=== PATIENT | female | born 1955 | race Caucasian/White ===

== ENCOUNTER → 2020-03-20 13:37 | Outpatient (BNVA) | payer MEDICARE, OTHER, SELFPAY | PROVIDERS: Family Provider Internal Medicine; PCP Internal Medicine; Visit Provider Nurse Practitioner Family | DX: S99.912A Unspecified injury of left ankle, initial encounter (principal); X58.XXXA Exposure to other specified factors, initial encounter | CPT/HCPCS: 73610 ==

== ENCOUNTER 2021-06-14 10:49 | Outpatient (CLI) | payer MEDICARE, OTHER, SELFPAY ==
--- NOTE | 2021-06-14 10:54 | MM_ITS ---
WS: [id number] BILATERAL DIGITAL DIAGNOSTIC MAMMOGRAM MAMMOGRAPHY WITH CAD CLINICAL INFORMATION: HX OF BREAST CA HISTORY: History of left lumpectomy COMPARISON: Outside examinations May 2020, May 2017, May 2018 and May 2019 TECHNIQUE: Bilateral CC, MLO, and ML views. FINDINGS: The breasts are composed of heterogeneous fibroglandular density, which can limit the detection of sm all underlying mass lesions. Prior postoperative changes left lumpectomy with parenchymal fibrosis si milar to previous. Dystrophic calcifications. Surgical clips about the lumpectomy site. Punctate and secretory calcifications. Lucent centered calcifications. Vascular calcification. No suspicious focal mass, asymmetry, calcifications, or architectural distortion. No evidence of samuel gnancy. MM/[place] [id number] IMPRESSION: BI-RADS: 2-Benign FOLLOW UP: 1 Year Follow-up Recommend return to annual diagnostic mammography.
== END 2021-06-14 10:50 | disposition home or self-care (01) ==
LOC: RADSHAW 10:52
PROVIDERS: PCP Internal Medicine; Visit Provider Internal Medicine
DX: Z85.3 Personal history of malignant neoplasm of breast (principal)
CPT/HCPCS: 77066

== ENCOUNTER 2022-07-03 10:36 | Outpatient (CLI) | payer MEDICARE, OTHER, SELFPAY ==
--- NOTE | 2022-07-03 10:43 | MM_ITS ---
WS: [id number] DIAGNOSTIC BILATERAL DIGITAL BREAST TOMOSYNTHESIS MAMMOGRAPHY WITH CAD HISTORY: HX OF BREAST CA COMPARISON: 06/14/2021, 05/26/2020 and 05/26/2019 TECHNIQUE: Bilateral craniocaudad, mediolateral oblique, and mediolateral views are submitted with to mosynthdane and SM. Computer aided detection utilized. Breast composition: There are scattered areas of fibroglandular density. Postsurgical lumpectomy grijalva ges in the upper outer quadrant of the LEFT breast. There is distortion of the soft tissues. Dystroph ic calcifications and surgical clips at the surgical bed. 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 Additional bilateral calcifications in each breast. MM/[place] [id number] IMPRESSION: BI-RADS: 2-Benign FOLLOW UP: 1 Year Follow-up
== END 2022-07-03 10:37 | disposition home or self-care (01) ==
PROVIDERS: PCP Internal Medicine; Visit Provider Internal Medicine
DX: Z85.3 Personal history of malignant neoplasm of breast (principal)
CPT/HCPCS: 77062

== ENCOUNTER 2023-07-10 12:18 | Outpatient (CLI) | payer MEDICARE, OTHER, SELFPAY ==
--- NOTE | 2023-07-10 12:32 | MM_ITS ---
WS: [id number] BILATERAL 3D TOMOSYNTHESIS DIGITAL DIAGNOSTIC MAMMOGRAPHY WITH CAD CLINICAL INFORMATION: ANNUAL - HX BR CA HISTORY: COMPARISON: 2021 TECHNIQUE: Bilateral CC, MLO, and ML views. FINDINGS: Scattered fibroglandular densities bilaterally. Punctate and lucent centered calcifications. Parenc hymal scarring upper outer LEFT breast at the lumpectomy site with surgical clips. Treatment related changes LEFT breast. Vascular calcification. No suspicious focal mass, asymmetry, calcifications, or architectural distortion. No evidence of samuel gnancy. IMPRESSION: MM/[place] [id number] BI-RADS: 2-Benign FOLLOW UP: 1 Year Follow-up Recommend return to annual diagnostic mammography.
== END 2023-07-10 12:19 | disposition home or self-care (01) ==
LOC: RAD 12:19
PROVIDERS: PCP Internal Medicine; Visit Provider Internal Medicine
DX: Z85.3 Personal history of malignant neoplasm of breast (principal)
CPT/HCPCS: 77062; G0279

== ENCOUNTER 2024-03-19 11:34 | Outpatient (CLI) | payer MEDICARE, OTHER, SELFPAY ==
--- NOTE | 2024-03-19 11:37 | USCV_ITS ---
Lucinda Huynh Age: 68 Gender: F : 1955 Exam Date: 03/19/2024 11:47 Ordering Phys: Timoteo Stuart DO Technologist: HILDA Exam Location: [facility] [place] Indication: BP: 128 / 68 HR: 110 Rhythm: Sinus Technical Quality: Adequate MEASUREMENTS (Male / Female) Normal Values 2D ECHO LV Diastolic Diameter PLAX 4.1 cm 4.2 - 5.9 / 3.9 - 5.3 cm LV Systolic Diameter PLAX 2.7 cm IVS Diastolic Thickness 1.2 cm 0.6 - 1.0 / 0.6 - 0.9 cm IVS Systolic Thickness 1.4 cm LVPW Diastolic Thickness 1.5 cm 0.6 - 1.0 / 0.6 - 0.9 cm LVPW Systolic Thickness 1.6 cm LVOT Diameter 2.0 cm LV Ejection Fraction 2D Teich 61.3 % LV Ejection Fraction MOD 2C 61.3 % LV Ejection Fraction 2C AL 59.6 % LA Diameter 3.2 cm RA Systolic Volume 4C AL 15.8 ml RA Systolic Volume 4C MOD 12.9 ml LA Sys Volume AL 32.3 cm cubed LA Sys Volume Index AL 15.8 cm cubed/m squared Aorta at Sinotubular Diameter 2.1 cm IVC Diameter 2.1 cm M-MODE LA Ao Ratio MM 1.4 MV E Point Septal Separation 1.6 cm AV Cusp Separation MM 1.4 cm DOPPLER LVOT Peak Velocity 100.0 cm/s AV Area Cont Eq vti 3.4 cm squared AV Area Cont Eq pk 3.0 cm squared TV Peak Velocity 103.0 cm/s TR Peak Velocity 103.0 cm/s TR Peak Gradient 4.2 mmHg TR Mean Velocity 72.0 cm/s TR Mean Gradient 2.3 mmHg TR Velocity Time Integral 28.9 cm TV Peak E Velocity 60.0 cm/s RV Ejection Time 0.3 s FINDINGS Left Ventricle Normal left ventricular size and systolic function, EF 60%. No regional wall motion abnormalities. Grade I/IV diastolic dysfunction (abnormal relaxation filling pattern), normal to mildly elevated filling pressures. Right Ventricle The right ventricle is normal in size and function. Right Atrium The right atrium is normal in size. Left Atrium The left atrium is normal in size. Mitral Valve Moderate mitral annular calcification. Trace mitral valve regurgitation. Aortic Valve Thickened aortic valve. Tricuspid Valve No gross abnormalities noted Pulmonic Valve No gross abnormalities noted Pericardium Normal pericardium without effusion. Aorta Normal ascending aorta dimension. IVC Normal inferior vena cava. CONCLUSIONS Normal left ventricular size and systolic function, EF 60%. No regional wall motion abnormalities. Grade I/IV diastolic dysfunction (abnormal relaxation filling pattern), normal to mildly elevated filling pressures. Moderate mitral annular calcification. Trace mitral valve regurgitation. Thickened aortic valve. There is no pericardial effusion. There are no intracardiac masses. No similar previous studies are available for comparison Dr Jin Zarate MD [facility] (Electronically Signed) Final Date: 21 Mar 2024 12:51 S
--- NOTE | 2024-03-19 13:13 | ECG_ITS ---
[facility] Test Date: 2024-03-19 Pat Name: Lucinda Huynh Department: Room: Gender: Female [employer] Master: : 1955 Requested By: Timoteo Villanueva Order Number: [id number] Lissette MD: Interpretive Statements Lung unchanged pre/post procedure; Intraprocedure shortess of breath [id number]
[2024-03-19 14:04] VITALS: BP 149/53; PULSE 81
== END 2024-03-19 11:35 | disposition home or self-care (01) ==
LOC: RAD 11:34 → CDL 13:03
PROVIDERS: PCP Internal Medicine; Visit Provider Internal Medicine
DX: R01.1 Cardiac murmur, unspecified (principal); R07.9 Chest pain, unspecified; I35.2 Nonrheumatic aortic (valve) stenosis with insufficiency; I50.30 Unspecified diastolic (congestive) heart failure
CPT/HCPCS: 93017; 93306

== ENCOUNTER → 2024-04-16 13:32 | Outpatient (BNVA) | payer MEDICARE, OTHER, SELFPAY | PROVIDERS: PCP Internal Medicine; Referring Provider Internal Medicine; Visit Provider Internal Medicine Cardiovascular Disease | DX: R07.89 Other chest pain (principal); I35.0 Nonrheumatic aortic (valve) stenosis; I10 Essential (primary) hypertension; E78.5 Hyperlipidemia, unspecified; E11.9 Type 2 diabetes mellitus without complications; I49.8 Other specified cardiac arrhythmias; Z87.891 Personal history of nicotine dependence; Z79.84 Long term (current) use of oral hypoglycemic drugs | CPT/HCPCS: 99204 ==

== ENCOUNTER 2024-05-05 11:08 | Outpatient (CLI) | payer MEDICARE, OTHER, SELFPAY ==
--- NOTE | 2024-05-05 11:15 | USCV_ITS ---
Lucinda Huynh Age: 69 Gender: F : 1955 Exam Date: 05/05/2024 11:20 Ordering Phys: Jin Zarate MD ([email or web address]) Technologist: Exam Location: [facility] [place] Indication: as BP: 100 / 60 HR: 48 Rhythm: Sinus Technical Quality: Adequate MEASUREMENTS (Male / Female) Normal Values 2D ECHO LVOT Diameter 2.0 cm LV Ejection Fraction MOD 2C 54.5 % LV Ejection Fraction 2C AL 52.5 % LA Diameter 4.6 cm Aorta at Sinotubular Diameter 2.3 cm M-MODE LA Ao Ratio MM 1.1 AV Cusp Separation MM 0.7 cm DOPPLER AV Peak Velocity 329.7 cm/s LVOT Peak Velocity 99.0 cm/s AV Area Cont Eq vti 1.1 cm squared AV Area Cont Eq pk 0.9 cm squared FINDINGS Left Ventricle Normal LV size and ejection fraction of 55%. Mild concentric left trickle hypertrophy. No gross wall motion abnormalities noted. Right Ventricle The right ventricle is normal in size and function. Right Atrium The right atrium is normal in size. Left Atrium Mildly increased left atrial size. Mitral Valve Minimally thickened mitral valve Aortic Valve Moderate aortic valve stenosis with a peak velocity of 2.76 m/s, peak gradient of 32 and a mean gradient of 14 mmHg. Calculated valve area of 1.13 cm squared. Tricuspid Valve No gross abnormalities noted Pulmonic Valve Not visualized well Pericardium Normal pericardium without effusion. Aorta Normal ascending aorta dimension. IVC Inferior vena cava not visualized. CONCLUSIONS Normal LV size and ejection fraction of 55%. Mild concentric left trickle hypertrophy. No gross wall motion abnormalities noted. Moderate aortic valve stenosis with a peak velocity of 2.76 m/s, peak gradient of 32 and a mean gradient of 14 mmHg. Calculated valve area of 1.13 cm squared. Minimally thickened mitral valve. There is no pericardial effusion. There are no intracardiac masses. Comparison with the previous study is difficult because of the difference in the technical quality. Dr Jin Zarate MD [facility] (Electronically Signed) Final Date: 13 May 2024 00:01 S
== END 2024-05-05 11:09 | disposition home or self-care (01) ==
LOC: RAD 11:08
PROVIDERS: PCP Internal Medicine; Visit Provider Internal Medicine Cardiovascular Disease
DX: I35.0 Nonrheumatic aortic (valve) stenosis (principal); I34.81 Nonrheumatic mitral (valve) annulus calcification
CPT/HCPCS: 93308; 93325

== ENCOUNTER 2024-07-15 08:51 | Outpatient (CLI) | payer MEDICARE, OTHER, SELFPAY ==
--- NOTE | 2024-07-15 08:56 | MM_ITS ---
WS: [id number] DIAGNOSTIC BILATERAL DIGITAL BREAST TOMOSYNTHESIS MAMMOGRAPHY WITH CAD HISTORY: HX OF BREAST CANCER COMPARISON: 07/03/2022, 07/10/2023, 05/26/2019 TECHNIQUE: Bilateral craniocaudad, mediolateral oblique, and mediolateral views are submitted with to mosynthesis and SM. Computer aided detection utilized. Breast composition: The breasts are heterogeneously dense, which may obscure small masses. Parenchymal scarring and fibrosis with dystrophic calcifications in the upper outer quadrant of the L EFT breast at the lumpectomy site. There are numerous benign calcifications within each breast. No ma ss. No suspicious grouping of calcifications. MM/[place] [id number] IMPRESSION: BI-RADS: 2 - Benign FOLLOW UP: 1 Year Follow-up
== END 2024-07-15 08:52 | disposition home or self-care (01) ==
LOC: RAD 08:51
PROVIDERS: PCP Internal Medicine; Visit Provider Internal Medicine
DX: Z85.3 Personal history of malignant neoplasm of breast (principal); R92.333 Mammographic heterogeneous density, bilateral breasts; N60.32 Fibrosclerosis of left breast; R92.1 Mammographic calcification found on diagnostic imaging of breast
CPT/HCPCS: 77062; G0279

== ENCOUNTER → 2024-07-21 09:42 | Outpatient (BNVA) | payer MEDICARE, OTHER, SELFPAY | PROVIDERS: PCP Internal Medicine; Visit Provider Internal Medicine Cardiovascular Disease | DX: I35.0 Nonrheumatic aortic (valve) stenosis (principal); I10 Essential (primary) hypertension; E78.5 Hyperlipidemia, unspecified; I49.8 Other specified cardiac arrhythmias; E11.9 Type 2 diabetes mellitus without complications; R00.1 Bradycardia, unspecified | CPT/HCPCS: 99214 ==

== ENCOUNTER → 2025-01-18 08:51 | Outpatient (BNVA) | payer MEDICARE, OTHER, SELFPAY | PROVIDERS: PCP Internal Medicine; Visit Provider Nurse Practitioner Family | DX: I35.0 Nonrheumatic aortic (valve) stenosis (principal); I10 Essential (primary) hypertension; E78.5 Hyperlipidemia, unspecified; I49.8 Other specified cardiac arrhythmias; E11.9 Type 2 diabetes mellitus without complications; R00.1 Bradycardia, unspecified; Z87.891 Personal history of nicotine dependence; Z79.84 Long term (current) use of oral hypoglycemic drugs | CPT/HCPCS: 99214 ==

== ENCOUNTER 2025-05-10 11:15 | Outpatient (CLI) | payer MEDICARE, OTHER, SELFPAY ==
--- NOTE | 2025-05-10 11:15 | USCV_ITS ---
Lucinda Huynh Age: 70 Gender: F : 1955 Exam Date: 05/10/2025 11:28 Ordering Phys: Licha Benz NP Technologist: CAYDEN [place] [facility] [place]ication: Aortic Stenosis BP: 126 / 70 HR: 56 Rhythm: Sinus Technical Quality: Adequate MEASUREMENTS (Male / Female) Normal Values 2D ECHO LV Diastolic Diameter PLAX 4.3 cm 4.2 - 5.9 / 3.9 - 5.3 cm IVS Diastolic Thickness 1.1 cm 0.6 - 1.0 / 0.6 - 0.9 cm IVS Systolic Thickness 1.7 cm LVPW Diastolic Thickness 1.1 cm 0.6 - 1.0 / 0.6 - 0.9 cm LVPW Systolic Thickness 1.7 cm LVOT Diameter 2.0 cm LV Ejection Fraction 2D Teich 61.9 % LV Ejection Fraction MOD 4C 72.1 % LV Ejection Fraction MOD 2C 64.8 % LV Ejection Fraction 2C AL 65.5 % LA Diameter 2.6 cm RA Systolic Volume 4C AL 40.6 ml RA Systolic Volume 4C MOD 41.2 ml LA Sys Volume AL 56.9 cm cubed LA Sys Volume Index AL 29.3 cm cubed/m squared Aorta at Sinotubular Diameter 2.8 cm IVC Diameter 2.4 cm M-MODE LA Ao Ratio MM 1.3 AV Cusp Separation MM 1.1 cm DOPPLER AV Peak Velocity 251.5 cm/s LVOT Peak Velocity 91.0 cm/s AV Area Cont Eq vti 1.1 cm squared AV Area Cont Eq pk 1.1 cm squared MV Peak Velocity 141.0 cm/s MV Area PHT 4.0 cm squared Mitral E to A Ratio 0.7 TR Peak Velocity 117.0 cm/s TR Peak Gradient 5.5 mmHg TV Peak E Velocity 72.0 cm/s FINDINGS Left Ventricle Normal left ventricular size and systolic function, EF 65%.mild left ventricular hypertrophy. No regional wall motion abnormalities. Grade I/IV diastolic dysfunction (abnormal relaxation filling pattern), normal to mildly elevated filling pressures. Right Ventricle The right ventricle is normal in size and function. Right Atrium The right atrium is normal in size. Left Atrium Mildly increased left atrial size. Mitral Valve Mild mitral annular calcification. Aortic Valve Moderate aortic valve stenosis, mean gradient 11.9 mmHg, KATIE 1.1 cm squared. Peak velocity of 2.6 m/s with a peak gradient of 27 and a mean gradient of 12 mmHg Moderate aortic valve calcification. Trace aortic valve regurgitation. Tricuspid Valve No gross abnormalities noted Pulmonic Valve No gross abnormalities noted Pericardium No pericardial effusion. Aorta Normal aortic annulus size. IVC Normal inferior vena cava. CONCLUSIONS Normal left ventricular size and systolic function, EF 65%.mild left ventricular hypertrophy. No regional wall motion abnormalities. Grade I/IV diastolic dysfunction (abnormal relaxation filling pattern), normal to mildly elevated filling pressures. Moderate aortic valve stenosis, mean gradient 11.9 mmHg, KATIE 1.1 cm squared. Peak velocity of 2.6 m/s with a peak gradient of 27 and a mean gradient of 12 mmHg Moderate aortic valve calcification. Trace aortic valve regurgitation. Mild mitral annular calcification. Mildly increased left atrial size. There is no pericardial effusion. There are no intracardiac masses. Compared to the study from 05/05/2024, there may not be a significant change Dr Jin Zarate MD [facility] (Electronically Signed) Final Date: 11 May 2025 07:38 S
== END 2025-05-10 11:16 | disposition home or self-care (01) ==
LOC: RAD 11:16
PROVIDERS: PCP Family Medicine; Visit Provider Nurse Practitioner Family
DX: I35.0 Nonrheumatic aortic (valve) stenosis (principal); I51.7 Cardiomegaly; I51.89 Other ill-defined heart diseases; I34.81 Nonrheumatic mitral (valve) annulus calcification
CPT/HCPCS: 93306

== ENCOUNTER 2025-05-19 12:21 | Emergency (ER) | payer MEDICARE, OTHER, SELFPAY ==
--- NOTE | 2025-05-19 12:22 | XR_ITS ---
WS: [id number] XR chest 1V portable [id number] REASON FOR EXAM: cp FINDINGS: Chest is unchanged compared to 03/04/2024. Moderate tortuosity of the thoracic aorta with calcification of the aortic arch. Heart size is at the upper limits of normal. Calcified granulomatous disease bilaterally. No acute pulmonary parenchymal or pleural abnormality. Mild levoscoliosis and moderate degenerative spondylosis in the thoracic spine. Chronic posttraumatic changes of the right acromioclavicular joint. XR/XR chest 1V portable [id number] IMPRESSION: Stable chest with no acute abnormality.
--- NOTE | 2025-05-19 12:22 | ECG_ITS ---
[facility] Test Date: 2025-05-19 Pat Name: Lucinda Huynh Department: Room: Gender: Female [employer] Designer: : 1955 Requested By: Kristian Rodriguez Order Number: [id number] Lissette MD: Jin Zarate M.D. Measurements Intervals [place] Rate: 59 P: 49 [place]: 146 QRS: 7 QRSD: 90 T: 6 QT: 417 QTc: 414 Interpretive Statements SINUS BRADYCARDIA LOW QRS VOLTAGE IN PRECORDIAL LEADS [QRS DEFLECTION < 1.0 mV IN CHEST LEADS] Poor R wave progression Compared to ECG 01/21/2019 15:12:08 Sinus rhythm no longer present Electronically Signed On 05-19-2025 16:41:35 CDT by Jin Zarate M.D. [email or web address] [id number]
[2025-05-19 12:28] VITALS: BP 210/80; PULSE 58; TEMP 36.5; O2SAT 96; BMI 34.7
--- OUTSIDE RECORDS SUMMARY | 2025-05-19 12:28 | XMS_ITS | Data Portability ---
Author Organization HECTOR Aaron [facility] [address], [facility] Address [address] [address] Care Team Providers Care Road Marker Name Role Phone TIMOTEO STUART Primary Care Provider Unavailabl e Assessment No assessment recorded. Plan of Treatment Reminders Order Date Submit Date Provider Last Modified By Organization Details Last Modified Time Details Appointments LAB 2024 08:00A M LAB Not available Not available Not available OFFICE VISIT 15 2024 11:00A M Bola Carpenter MD Not available Not available Not available Lab hemoglobi n A1C/hemog lobin total, QN, blood 2024 025 [facility], [address], [address], 11/25/2024 09:29:45 BMP, serum or plasma 2024 025 [facility], [address], [address], 11/25/2024 17:52:05 HbA1c (hemoglob in A1c), blood 2023 024 [facility] ([facility]), [address] [place] [address], [address], 05/27/2024 10:18:16 TSH, serum or plasma 2023 024 [facility] ([facility]), [address] [place], [address], 05/27/2024 10:40:11 lipid panel, blood 2023 024 [facility], [address], [address], [place], [address], 05/27/2024 10:40:21 CMP, serum or plasma 2023 024 [facility], [address], [address], [place], [address], 05/27/2024 10:39:07 CBC 2023 024 [facility], [address] [facility], [place], [address], 05/27/2024 10:05:44 Referral None recorded. Procedures None recorded. Surgeries None recorded. Imaging None recorded. Medication Orders ondansetr on 4 mg disintegr ating tablet 2023 024 [email or web address] [id number] [facility]/Pharmacy #[id number], [address], [facility], [place], [address], 12/02/2024 10:19:12 omeprazol e 20 mg capsule,d elayed release 2023 024 [facility]/Pharmacy #[id number], [address], [address], [place], [address], 06/03/2024 10:12:14 pravastat in 40 mg tablet 2023 024 [id number], [address], [address], [place], [address], 06/03/2024 10:12:14 Patient TargetsNo targets recorded. Patient Instructions Encounter Date Encounter Id Patient Instructions Last Modified By Organization Details Last Modified Time 06/03/2024 [id number] lost son unexpectedly; mostly handling okay, but he was her best friend labs reviewed and excellent regularly gets nauseous; random times; lots of heartburn despite taking pepsid; will perscirbe omeprazole following with cardiology [email or web address] Not available 06/03/2024 10:09:58 Reason for Referral None Reported. Results Created Date Observation Date Name Description Value Unit Range Abnormal Flag Note LastModifiedBy Organization Detail LastModifiedTime 05/27/2005/27/2024 CBC WBC 6.8 x10 4.0-10 .5 Not Available [facility] [address] [facility], [place], [address], 05/27/2024 10:05:44 05/27/2005/27/2024 CBC RBC 4.60 x10 3.50-5 .50 Not Available [facility] [address] [facility], [place], [address], 05/27/2024 10:05:44 05/27/20 24 05/27/2024 CBC HGB 15.0 g/dL 12.0-1 6.0 Not Available [facility] [address] [facility], [place], [address], 05/27/2024 10:05:44 05/27/20 24 05/27/2024 CBC HCT 43.6 % 37.0-4 7.0 Not Available [facility] [address] [facility], [place], [address], 05/27/2024 10:05:44 05/27/2005/27/2024 CBC MCV 94.7 fL 80.0-9 9.9 Not Available [facility] [address] [facility], [place], [address], 05/27/2024 10:05:44 05/27/2005/27/2024 CBC MCH 32.6 pg 27.0-3 2.0 high Not Available [facility] [address] [facility], [place], [address], 05/27/2024 10:05:44 05/27/2005/27/2024 CBC MCHC 34.4 g/dL 32.0-3 6.0 Not Available [facility] [address] [facility], [place], [address], 05/27/2024 10:05:44 05/27/2005/27/2024 CBC RDW 13.6 % 11.5-1 4.5 Not Available [facility] [address] [facility], [place], [address], 05/27/2024 10:05:44 05/27/2005/27/2024 CBC plt 259.2 x10 140.0- 451.0 Not Available [facility] [address] [facility], [place], [address], 05/27/2024 10:05:44 05/27/20 24 05/27/2024 CBC lymphocytes % 27.5 % 20.0-5 0.0 Not Available [facility] [address] [facility] [place], [address], 05/27/2024 10:05:44 05/27/2005/27/2024 CBC granulcytes % 63.1 % 30.0-7 0.0 Not Available [facility] [address] [facility], [place], [address], 05/27/2024 10:05:44 05/27/2005/27/2024 CBC monocytes % 7.7 % 2.0-16 .0 Not Available [facility] [address] [facility], [place], [address], 05/27/2024 10:05:44 05/27/20 24 05/27/2024 CBC granulcytes# 4.3 x10 Not [facility] [address] [facility], [place], [address], 05/27/2024 10:05:44 05/27/20 24 05/27/2024 CBC lymphocytes # 1.9 x10 Not Available [facility] [address] [facility], [place], [address], 05/27/2024 10:05:44 05/27/20 24 05/27/2024 CBC monocytes # 0.5 x10 Not Avai lable [facility] [address] [address], [place], [address], 05/27/2024 10:05:44 05/27/20 24 05/27/2024 CMP (FEMA LE) glucose 158.0 mg/dL 60.0-9 9.0 high Not Available [facility] [address] [facility], [place], [address], 05/27/2024 10:39:07 05/27/20 24 05/27/2024 CMP (FEMA LE) BUN (blood urea nitrogen) 14.0 mg/dL 10.0-2 6.0 Not Available [facility] [address] [address], [place], [address], 05/27/2024 10:39:07 05/27/20 24 05/27/2024 CMP (FEMA LE) creatinine (serum) 1.0 mg/dL 0.4-1. 5 Not Available [facility] [address] [address], [place], [address], 05/27/2024 10:39:07 05/27/20 24 05/27/2024 CMP (FEMA LE) BUN/creatini ne ratio 13.46 ratio Not Available [facility] [address] [facility] [address] [address], [place], [address], 05/27/2024 10:39:07 05/27/20 24 05/27/2024 CMP (FEMA LE) eGFR calculated 55.5 Not Available [facility] [address] [facility], [place], [address], 05/27/2024 10:39:07 05/27/20 24 05/27/2024 CMP (FEMA LE) total protein 7.8 g/dL 6.0-8. 5 Not Available [facility] [address] [facility], [place], [address], 05/27/2024 10:39:07 05/27/20 24 05/27/2024 CMP (FEMA LE) total bilirubin 0.5 mg/dL 0.2-1. 3 Not Available [facility] [address] [facility], [place], [address], 05/27/2024 10:39:07 05/27/20 24 05/27/2024 CMP (FEMA LE) albumin 4.5 g/dL 3.5-5. 5 Not Available [facility] [address] [facility], [place], [address], 05/27/2024 10:39:07 05/27/20 24 05/27/2024 CMP (FEMA LE) globulin 3.3 calc Not Available [facility] [address] [facility], [place], [address], 05/27/2024 10:39:07 05/27/20 24 05/27/2024 CMP (FEMA LE) AST (SGOT) 24.0 U/L 0.0-46 .0 Not Available [facility] [address] [facility], [place], [address], 05/27/2024 10:39:07 05/27/20 24 05/27/2024 CMP (FEMA LE) altv (SGPT) 11.0 U/L 13.0-6 9.0 abnormal Not Available [facility] [address] [facility], [place], [address], 05/27/2024 10:39:07 05/27/20 24 05/27/2024 CMP (FEMA LE) A/G ratio 1.4 ratio Not Available [facility] [address] [facility], [place], [address], 05/27/2024 10:39:07 05/27/20 24 05/27/2024 CMP (FEMA LE) ALP phos 67.0 U/L 30.0-1 40.0 normal Not Available [facility] [address] [facility], [place], [address], 05/27/2024 10:39:07 05/27/20 24 05/27/2024 CMP (FEMA LE) calcium 9.7 mg/dL 8.4-10 .5 Not Available [facility] [address] [facility], [place], [address], 05/27/2024 10:39:07 05/27/20 24 05/27/2024 CMP (FEMA LE) sodium 140.0 mmol/ L 136.0- 145.0 Not Available [facility] [address] [facility], [place], [address], 05/27/2024 10:39:07 05/27/20 24 05/27/2024 CMP (FEMA LE) potassium 4.4 mmol/ L 3.5-5. 1 Not Available [facility] [address] [facility], [place], [address], 05/27/2024 10:39:07 05/27/20 24 05/27/2024 CMP (FEMA LE) chloride 104.0 mmol/ L 98.0-1 10.0 normal Not Available [facility] [address] [facility], [place], [address], 05/27/2024 10:39:07 05/27/20 24 05/27/2024 CMP (FEMA LE) C02 28.0 mmol/ L 22.0-3 1.0 Not Available [facility] [address] [facility], [place], [address], 05/27/2024 10:39:07 05/27/20 24 05/27/2024 CMP (FEMA LE) anion gap 8.0 calc Not Available [facility] [address] [facility], [place], [address], 05/27/2024 10:39:07 05/27/20 24 05/27/2024 CMP (FEMA LE) osmolality 292.6 calc Not Available [facility] [address] [facility], [place], [address], 05/27/2024 10:39:07 05/27/20 24 05/27/2024 LIPID PROFI LE (FEMA LE) cholesterol 176.0 mg/dL 0.0-20 0.0 Not Available [facility] [address] [facility], [place], [address], 05/27/2024 10:40:20 05/27/20 24 05/27/2024 LIPID PROFI LE (FEMA LE) trig 210.0 mg/dL 0.0-15 0.0 high Not Available [facility] [address] [facility], [place], [address], 05/27/2024 10:40:20 05/27/20 24 05/27/2024 LIPID PROFI LE (FEMA LE) HDL - direct 44.0 mg/dL >40.0 Not Available [facility] [address] [facility], [place], [address], 05/27/2024 10:40:20 05/27/20 24 05/27/2024 LIPID PROFI LE (FEMA LE) VLDL - direct 42.0 mg/dL Not Available [facility] [address] [facility] 1, [place], [address], 05/27/2024 10:40:20 05/27/20 24 05/27/2024 LIPID PROFI LE (FEMA LE) LDL - direct 90.0 mg/dL 0.0-13 0.0 Not Available [facility] [address] [facility] 1, [place], [address], 05/27/2024 10:40:20 05/27/20 24 05/27/2024 TSH, serum or plasm a TSH 0.96 uIU/m L 0.49-3 .82 normal Not Available [facility] ([facility]) [address] [place] [address], [address], 05/27/2024 09:40:29 05/27/20 24 05/27/2024 HbA1c (hemo globi n A1c), blood HbA1c 6.6 Not Available [facility] ([facility]) [address] [place] [address], [address], 05/27/2024 09:40:22 11/18/1911/25/2024 HBA1C hemaglobin A1C 6.6 4.2-6. 5 high Not Available [facility] [address] [address], [place], [address], 11/25/2024 09:29:45 11/18/1911/25/2024 BMP (FEMA LE) glucose 156.0 mg/dL 60.0-9 9.0 high Not Available [facility] [address] [facility] 1, [place], [address], 11/25/2024 17:52:05 11/18/1911/25/2024 BMP (FEMA LE) BUN (blood urea nitrogen) 12.0 mg/dL 10.0-2 6.0 Not Available [facility] [address] [facility], [place], [address], 11/25/2024 17:52:05 11/18/19 25 11/25/2024 BMP (FEMA LE) creatinine (serum) 1.0 mg/dL 0.4-1. 5 Not Available [facility] [address] [facility] 1, [place], [address], 11/25/2024 17:52:05 11/18/1911/25/2024 BMP (FEMA LE) BUN/creatini ne ratio 12.00 ratio Not Available [facility] [address] [facility] 1, [place], [address], 11/25/2024 17:52:05 11/18/19 25 11/25/2024 BMP (FEMA LE) calcium 9.5 mg/dL 8.4-10 .5 Not Available [facility] [address] [facility] 1, [place], [address], 11/25/2024 17:52:05 11/18/1911/25/2024 BMP (FEMA LE) sodium 141.0 mmol/ L 136.0- 145.0 Not Available [facility] [address] [facility] 1, [place], [address], 11/25/2024 17:52:05 11/18/1911/25/2024 BMP (FEMA LE) potassium 4.3 mmol/ L 3.5-5. 1 Not Available [facility] [address] [facility] 1, [place], [address], 11/25/2024 17:52:05 11/18/1911/25/2024 BMP (FEMA LE) chloride 107.0 mmol/ L 98.0-1 10.0 normal Not Available [facility] [address], [place], [address], 11/25/2024 17:52:05 11/18/19 25 11/25/2024 BMP (FEMA LE) C02 31.0 mmol/ L 22.0-3 1.0 Not Available [facility] [address], [place], [address], 11/25/2024 17:52:05 11/18/19 25 11/25/2024 BMP (FEMA LE) anion gap 3.0 calc Not Available [facility] [address], [place], [address], 11/25/2024 17:52:05 04/06/20 25 04/06/2025 COLOG UARD cologuard result reportable NEGATI VE negati ve normal The Colog uard Plus (TM) test was perfo rmed on this speci men. NEGAT CARRIE TEST RESUL T. A negat carrie (norm al) Colog uard Plus resul t means the patie nt has a less- than- avera ge chanc e of havin g color ectal cance r (CRC) or advan steffi preca ncer (poly ps or lesio ns that could becom e cance r). Negat carrie is the terrie l value (refe rence range ) for this assay . Guide lines recom mend scree tha again 3 years after a negat carrie Colog uard Plus resul t. Jackson nued scree tha incre ases the chanc e of findi ng CRC early or preve nting it entir wil. A clini paris valid ation study showe d the Colog uard Plus test is effec tive at rulin g out CRC. Out of every 10,00 0 patie nts testi ng negat carrie, appro ximat wil 2 will be false ly reass ured that they do not have CRC, and out of every 100 patie nts testi ng negat carrie, appro ximat wil 7 patie nts will be false ly reass ured they do not have advan steffi preca ncer. TEST DESCR IPTIO N: The Colog uard Plus test is a multi -targ et stool DNA (mt-s DNA) test that roney zes DNA and hemog lobin bioma rkers in stool . It uses a propr ietar y algor ithm to quali tativ wil detec t CRC and advan steffi preca ncer. It is FDA-a pprov ed and indic ated for use in adult s 45 years or older at [facility] risk for CRC. A posit carrie (abno rmal) resul t shoul d be follo wed by a colon oscop y. Patie nts with a negat carrie (norm al) resul t shoul d scree n again in 3 years . False posit carrie and false negat carrie resul ts may occur . The USPST F recom mends the Colog uard test as a CRC scree tha optio n. Their model ing estim ates that scree tha with the test every 3 years from ages 45-85 could preve nt up to 73% of CRC and avoid up to 85% of CRC s. A 18,91 1-pat ient clini paris trial found the Colog uard Plus test effec tivel y detec ts CRC and preca ncer. The study found the test was 95% sensi tive for CRC, 43% sensi tive for advan steffi preca ncer, and had a 91% speci ficit y ([facility] morenita aCntu ure. Exact Scien colten Corpo ratio n. [place], [place] Visit www.[facility] [employer] /abou t/acc uracy -sens itivi ty-sp [facility] for more test infor matmerary n, refer emily de la garza ngs, and preca ution s. Not Available [facility] (Cologuard Orders Only) [address], [place], [address], 04/14/2025 06:00:48 07/15/20 24 07/15/2024 MAMMO , scree tha, digit al, bilat eral No observ ation record ed. [email or web address] [facility] [address] [place], [address], 07/16/2024 15:03:47 Result Notes None recorded. Problems Name Problem SNOMED Code Status Onset Date Resolution Date Notes Provider Name and Address Organization Details Recorded Time Disorder due to type 2 diabetes mellitus 771626647 Active 2022 DIABETES MELLITUS WITH COMPLICAT ION; Recorded 3 8:20AM by Estefani Curry RN, Office Visit; Promoted; acuity set as *; Not Available [facility] 3 03:11:08 Benign essential hypertens ion 3493173 Active 2022 Hypertens ion; 3 8:20AM by Estefani Curry RN, Office Visit; Promoted; acuity set as *; Not Available [facility] 3 03:11:08 Hyperlipi demia 04558935 Active 2022 Hyperlipi demia; 3 8:20AM by Estefani Curry RN, Office Visit; Promoted; acuity set as *; Not Available [facility] 3 03:11:08 Type 2 diabetes mellitus without complicat ion 559570145 Active 2022 Non-Insul in Dependent Diabetes Mellitus; 3 8:20AM by Estefani Curry RN, Office Visit; Promoted; acuity set as *; Not Available [facility] 3 03:11:08 Anxiety 71145365 Active 2023 ESTEFANI flannery [facility] 4 10:46:43 Morbid obesity 590284870 Active 2023 ESTEFANI flannery [facility] 4 10:46:51 Essential hypertens ion 58295152 Active 2022 Timoteo Stuart [address], [address] , [facility] 3 10:40:29 Hyperglyc emia due to type 2 diabetes mellitus 54428135954 9109 Active 2022 Timoteo StuartDO [address] [place], [address] , [facility], [place] 3 10:40:31 Echocardi ogram abnormal 613010086 Active 2023 ESTEFANI flannery [facility], [place] 4 13:20:23 Persisten t insomnia 278386419 Active 2022 ESTEFANI flannery [facility] [place] 3 15:41:01 Problem Notes None recorded. Procedures Surgical History Date Name Laterality Status Provider Name and Address Organization Details Recorded Time colonoscopy completed SVETA MUNGUIA [employer]ATHER[employer]ATION DIRECTOR [address] [place], [address], [facility], [place] 04/14/2025 15:00:55 Tubal Ligation completed [facility] 12/02/2024 10:21:30 lumpectomy of left breast completed Laurel [facility]rien [facility] 12/02/2024 10:21:44 Imaging Results None recorded. Procedure Notes None recorded. Medical Equipment None Reported. Allergies No known drug allergies Medications Name Sig Start Date Stop Date Status Note LastModified by Organization Details LastModified Time Colace 100 mg capsule two times daily 06/03 completed 0; Recorded 11/19/19 23 8:20AM by Alejandra Curry RN, Office Visit; Not Available Not Available Not Available pravastat in 40 mg tablet TAKE 1 TABLET DAILY 2024 active Not Available Not Available Not Avai lable glipizide ER 10 mg tablet, extended release 24 hr TAKE 1 TABLET EVERY MORNING 03/04 completed Not Available Not Available Not Available prednison e 20 mg tablet TAKE 2 TABS BY MOUTH X 4 DAYS, THEN 1 TAB X 2 DAYS, THEN 1/2 TAB X 2 DAYS 02/20 completed Not Available Not Available Not Available amlodipin e 5 mg tablet TAKE 1 TABLET BY MOUTH EVERY DAY 12/02 completed Not Available Not Available Not Available tramadol 50 mg tablet TAKE 1 TABLET BY MOUTH EVERY 6 HOURS active Not Available Not Available No t Available ondansetr on 8 mg disintegr ating tablet PLACE 1 TABLET ON TOP OF TONGUE AND ALLOW TO DISSOLVE 3 TIMES A DAY NEEDED 06/03 completed Not Available Not Available Not Available citalopra m 20 mg tablet TAKE 1 TABLET DAILY 2024 active Not Available Not Available Not Avai lable trazodone 100 mg tablet TAKE 1 TABLET AT BEDTIME 2024 active Not Available Not Available Not Avai lable amlodipin e 10 mg tablet TAKE 1 TABLET DAILY 2024 active Not Available Not Available Not Avai lable omeprazol e 20 mg capsule,d elayed release Take 1 capsule every day by oral route. 2024 active Not Available Not Available Not Avai lable albuterol sulfate HFA 90 mcg/actua tion aerosol inhaler FOUR TIMES DAILY NEEDED. active Not Available Not Available No t Available ondansetr on 4 mg disintegr ating tablet PLACE 1 TABLET ON TOP OF TONGUE AND ALLOW TO DISSOLVE 3 TIMES A DAY NEEDED 12/02 completed Not Available Not Available Not Available losartan 100 mg tablet TAKE 1 TABLET BY MOUTH EVERY EVENING active Not Available Not Available No t Available metformin ER 500 mg tablet,ex tended release 24 hr TAKE 2 TABLETS TWICE A DAY 2024 active Not Available Not Available Not Avai lable doxycycli ne hyclate 100 mg tablet TAKE 1 TABLET BY MOUTH TWICE A DAY 02/20 completed Not Available Not Available Not Available Ventolin 90 mcg/actua tion aerosol inhaler four times daily, as needed 06/03 completed Recorded 04/16/20 22 9:07AM by Alejandra Curry RN, Office Visit; Refill Quantity : 0; Not Available Not Available Not Available metoprolo l tartrate 25 mg tablet TAKE 1 TABLET TWICE A DAY BY ORAL ROUTE FOR 90 DAYS. active she takes half a tablet daily Not Available Not Available Not Available calcium daily 07/31 /2024 completed 0; Recorded 11/19/19 23 8:20AM by Alejandra Curry RN, Office Visit; Not Available Not Available Not Available Vitamin D daily 06/03 completed 0; Recorded 11/19/19 23 8:20AM by Alejandra Curry RN, Office Visit; Not Available Not Available Not Available pravastat in daily 12/04 completed for choleste rol VO CS/smf; 18096; Recorded 11/05/19 23 8:02AM by Alejandra Curry RN (Authori zed through Timoteo Stuart DO), Refill Request; Mail Order Quantity : 90 Tablet; Refill Quantity : 30; Tablet; Not Available Not Available Not Available glipizide every morning 12/04 completed cs/smf *do not fill until requeste d*; 04858; Recorded 11/01/20 22 8:58AM by Isabel Da Silva (Authori nona through Osmel Rahman DO), Refill Request; Mail Order Quantity : 100 Tablet; Refill Quantity : 90; Tablet; Not Available Not Available Not Available metformin two times daily 12/04 completed 26276; Recorded 04/16/20 22 9:07AM by Alejandra Curry RN (Authori nona through Timoteo Stuart DO), Office Visit; Mail Order Quantity : 400 Tablet; Refill Quantity : 0; Not Available Not Available Not Available Trazodone at bedtime 12/04 completed cs/smf; 18307; Recorded 04/16/20 22 9:07AM by Alejandra Curry RN (Authori zed through Timoteo Stuart DO), Office Visit; Mail Order Quantity : 90 Tablet; Refill Quantity : 90; Tablet; Not Available Not Available Not Available Pen Needle twice a day 06/03 completed 97742; Recorded 06/12/20 22 6:26PM by Isabel Da Silva (Authori zed through Osmel Rahman DO), Annotati on/Adden dum; Mail Order Quantity : 100 Each; Mail Order Days: 90 Days; Refill Quantity : 0; Not Available Not Available Not Available UltiCare Pen Needle 31 gauge x 1/4 06/03 completed Not Available Not Available Not Available amlodipin e besylate (bulk) daily 12/04 completed 65542; Recorded 12/17/19 23 7:29AM by Alejandra Curry RN (Authori nona through Timoteo Stuart DO), Refill Request; Mail Order Quantity : 90 Tablet; Mail Order Days: 90 Days; Refill Quantity : 0; Not Available Not Available Not Available Prolia every 6 months 06/03 completed 0; Recorded 11/19/19 23 8:20AM by Alejandra Curry RN, Office Visit; Not Available Not Available Not Available Victoza 3-Germán 0.6 mg/0.1 mL (18 mg/3 mL) subcutane ous pen injector 06/03 completed Not Available Not Available Not Available Jardiance 10 mg tablet TAKE 1 TABLET DAILY 2024 active Not Available Not Available Not Avai lable Jardiance daily 12/04 completed 26993; Recorded 01/08/20 23 7:50AM by Alejandra Curry RN (Authori nona through Timoteo Stuart DO), Refill Request; Mail Order Quantity : 90 Tablet; Refill Quantity : 0; Not Available Not Available Not Available losartan potassium (bulk) daily 12/04 completed cs/; 97314; Recorded 09/10/20 22 12:00PM by Alejandra Curry RN (Authori nona through Timoteo Stuart DO), Refill Request; Mail Order Quantity : 100 Tablet; Refill Quantity : 0; Not Available Not Available Not Available Vitals Date Recorded Body height Body mass index (BMI) Body weight Oxygen saturation Oxygen saturation in Arterial blood by Pulse oximetry Heart rate Respiratory rate Body temperature Systolic And Diastolic Provider Name and Address Organization Details Last Updated DateTime 5 158.5 cm 34.1 kg/m2 09232.2 4 g 93 % 93 % 49 /min 16 /min 97.2 [degF] 128/64 mm[Hg] [facility] 5 10:16:18 Date Recorded Body weight Respiratory rate Heart rate Oxygen saturation Oxygen saturation in Arterial blood by Pulse oximetry Systolic And Diastolic Provider Name and Address Organization Details Last Updated DateTime 4 36668.2 5 g 18 /min 62 /min 94 % 94 % 146/70 mm[Hg] ESTEFANI CURRY [facility] 4 09:53:13 Date Recorded Body weight Heart rate Oxygen saturation Oxygen saturation in Arterial blood by Pulse oximetry Body temperature Systolic And Diastolic Provider Name and Address Organization Details Last Updated DateTime 4 99832.5 7 g 87 /min 94 % 94 % 98.5 [degF] 142/68 mm[Hg] Ana [facility] 4 10:27:22 Social History Question Answer Notes LastModified by [email or web address] Details LastModified Time Tobacco Smoking Status Former Smoker ESTEFANI CURRY [facility] 02/20/2023 12:03:17 Are You Blind Or Do You Have Difficulty Seeing? No [email or web address] Information not available 02/20/2023 Are You Deaf Or Do You Have Serious Difficulty Hearing? No [email or web address] Information not available 02/20/2023 Which Illicit Or Recreational Drugs Have You Used? Marijuana Occasionally [email or web address] Information not available 12/02/2024 When Did You Quit Smoking? 11-15yearssinjerica rey [email or web address] Information not available 02/20/2023 Have You Had Direct Contact, Or Contact During Intimacy, With Monkeypox Rash, Scabs, Or Body Fluids From A Person With Monkeypox? No [email or web address] Information not available 02/20/2023 What Is Your Current Pack Years? 30ormorepackyear s [email or web address] Information not available 12/02/2024 Have You Recently Traveled Abroad? No [email or web address] Information not available 02/20/2023 Do You Have Difficulty Walking Or Climbing Stairs? No Information not available 02/20/2023 Sex: Unknown Functional Status Question Answer Note LastModified by Organizat ion Details LastModified Time Do you use any illicit or recreational drugs? Yes [email or web address] Information not available 12/02/2024 What is your level of alcohol consumption? None [email or web address] Information not available 12/02/2024 Are you able to walk? YESWOREST [email or web address] Information not available 02/20/2023 Do you have difficulty doing errands alone? No [email or web address] Information not available 02/20/2023 Are you able to care for yourself? Yes [email or web address] Information n ot available 02/20/2023 Do you have difficulty dressing or bathing? No [email or web address] Information not available 02/20/2023 Mental Status Question Answer Note LastModified by Organization D etails LastModified Time Do you have difficulty concentrating, remembering or making decisions? No [email or web address] Information no t available 02/20/2023 Family History Nothing Reported. Medical History Condition Response Coronary Artery Disease N Other N Gout N Kidney Stones N Blood Diseases N Hyperthyroidism N Breast Cancer N Blood Transfusion N Hypothyroidism N Lung Disease N COPD Y Depression Y Defects or Inherited Disease N Developmental or Behavioral Disorders N Breast Problem N Difficulty Swallowing N Anesthesia Complications N Anxiety Disorder N Meniere's disease N Muscle, Joint, or Bone Problems Y Vision or Eye Problems N Arthritis N Polyps N Infertility N Cancer N Varicosities N Stroke N Endometriosis N Bladder or Kidney Problems N High Cholesterol Y Liver Disease N Headaches N Fibromyalgia N Kidney Disease N Allergies/Hayfever N Heart Problems Y Ear or Hearing Problems N Hospitalizations N Thyroid Problems N GI Problems N ADD/ADHD N Skin Problems N Eating Disorder N Anemia N Constipation N Mental Illness N Ovarian Cancer N Diabetes Y Bedwetting N Seizures/Epilepsy N Tuberculosis N Eczema N Diverticulitis N Abuse/Domestic Violence N Asthma N Reflux/GERD N Hepatitis N Heart Disease N Pulmonary Embolism N Chronic Ear Infections N Pre-Eclampsia N Hypertension Y Chicken Pox N Autism Spectrum Disorder (ASD) N Osteoporosis N Thrombophilias N Gynecological HistoryNo gynecological history recorded. Obstetrics History GPAL:G 0 P 0 0 0 0 Immunizations Vaccine Type Date Status Note Provider Nam e and Address Organization Details Recorded Time pneumococcal, unspecified formulation 3 completed Not Available [facility] 06/01/2023 02:51:15 Influenza, split virus, trivalent, preservative 3 completed Not Available [facility] 06/01/2023 02:51:15 Pneumococcal conjugate PCV 13 8 completed Not Available [facility] 06/01/2023 02:51:15 Influenza, split virus, trivalent, preservative 3 completed Not Available [facility] 06/01/2023 02:51:15 Influenza, split virus, trivalent, preservative 4 completed Not Available [facility] 06/01/2023 02:51:15 Influenza, split virus, trivalent, preservative 8 completed Not Available [facility] 06/01/2023 02:51:15 zoster live 8 completed Not Available [facility] 06/01/2023 02:51:16 zoster recombinant 9 completed Not Available [facility] 06/01/2023 02:51:16 Past Encounters Encounter ID Performer Location Encounter Start Date Encounter Closed Date Diagnosis/Indication Diagnosis SNOMED-CT Code Diagnosis ICD10 Code Diagnosis Note [id number] Timoteo Stuart DO [facility] ([facility]) [address] [place] [phone] 02/20/2023 11:54:32 02/21/2023 17:14:06 Chronic obstructive pulmonary disease 66837951 J44.9 Abdominal pain 11500660 R10.9 exam benign; I suspect from vomiting Nausea and vomiting 1692 1999 R11.2 [id number] Timoteo Stuart DO [facility] ([facility]) [address] [place] [address] [id number] 5 05/27/2023 10:14:15 05/27/2023 12:51:30 Persistent insomnia 235776604 G47.09 Essential hypertension 77835030 I10 Hyperglyce prince due to type 2 diabetes mellitus 0650427353 87673 E11.65 [id number] Timoteo Stuart DO [facility] ([facility]) [address] [place] [address] [phone] 5 11/21/2023 09:32:04 11/22/2023 12:16:57 Disorder due to type 2 diabetes mellitus 103657021 E11.8 [id number] Timoteo Stuart DO [facility]) [address] [place] [id number] 5 12/04/2023 12:30:11 12/04/2023 15:27:18 Benign essential hypertension 6570790 I10 Disorder d ue to type 2 diabetes mellitus 694308361 E11.8 Essential hypertension 99950481 I10 Hyperlipidemia 72328583 E78.5 Anxiety 92305649 F41.9 Morbid obesity 803929572 E66.01 Nausea 883556044 R11.0 [id number] Timoteo Stuart DO [facility] ([facility]) [address] [place], [place] [address] 03/04/2024 11:00:20 03/04/2024 12:34:26 Chest pain 28782038 R07.9 Systolic murmur 62476994 R01.1 Bradycardia 03463305 R00 .1 [id number] Timoteo Stuart DO [facility] ([facility]) [address] [place], [place] [address] 05/27/2024 09:32:38 05/27/2024 10:21:27 Benign essential hypertension 6552574 I10 Disorder d ue to type 2 diabetes mellitus 260587197 E11.8 Hyperlipidemia 68680110 E78.5 Anxiety 77497538 F41.9 [id number] Timoteo Stuart DO [facility] ([facility]) [address] [place] [phone] 5 06/03/2024 09:49:25 06/03/2024 10:15:56 Benign essential hypertension 4149552 I10 Type 2 frannie betes mellitus without complication 359848213 E11.9 Anticipatory grief 66413 004 F43.21 Hyperlipidemia 00731963 E78.5 Gastroesop hageal reflux disease without esophagitis 618606619 K21.9 [id number] ETHAN REEVES [facility] ([facility]) [address] [place] [id number] 5 09/04/2024 10:23:02 09/04/2024 10:40:33 Acute gastroenteritis 77039354 K52.9 Discussed BRATS diet, small frequent sips of fluid. Rest.VSS. No signs of acute abd on exam today.If you develop fever, no urine output over 24 hours, bloody stools/treasure sis, abd pain, or concerns arise return for re-eval. [id number] Bola Carpenter MD [facility] ([facility]) [address] [place] [address] 11/25/2024 09:03:47 11/26/2024 10:25:42 Disorder due to type 2 diabetes mellitus 889910131 E11.8 [id number] Bola Carpenter MD [facility] ([facility]) [address] [place] [address] 12/02/2024 10:07:58 12/02/2024 10:31:40 Benign essential hypertension 8726463 I10 Controlled on current medication s. Type 2 frannie betes mellitus without complication 854673264 E11.9 A1c was 6.6%. Continue current medication s. Persistent insomnia 1919 92974 G47.09 Doing well with trazodone Anxiety 97383949 F41.9 Continue citalopram . Health Concerns Section Related Observation LastModified by Organization Detai ls LastModified Time None Recorded Concern Status LastModified by Organization Details LastModified Time None Recorded Advance Directives Directive None Recorded Payers Insurance Date Sequence Insurance Name Policy Number Policy [place] Covered Member ID [place] Member ID Guarantor Name 04/12/2025 2 [employer] (MEDICARE SUPPLEMENT) Lucinda A Ceresini [id number] Lucinda A Ceresini 04/12/2025 1 [place] Lucinda A Ceresini [id number] Lucinda A Ceresini 04/12/2025 [place] - [facility] (MEDICARE) Lucinda A Ceresini [id number] Lucinda A Ceresini Notes Date Note Type Note Provider Name and Address Organization Details Recorded Time 06/03/2024 text/html DiabetesReported bypatient.Duration:chr onic Control:usually well controlled Compliance:compliant with medications Timoteo Stuart DO [address] [place], [address], [facility] 06/03/2024 10:12:16 09/04/2024 text/html walk in ptpt has has n/v and diarrhea for 2 days. ETHAN REEVES [address] [place], [address], [facility], [place] 09/04/2024 10:40:16 12/02/2024 text/html This is a 69-yea r-old female comes in today to establish care. The patient was previously seeing Dr. Stuart. Patient states that this is her 6-month follow-up. The patient had lab work done last week. Patient denies any acute concerns today. Patient states that her chronic medical issues are stable. Bola Carpenter MD [address] [place], [address], [facility], [place] 12/05/2024 23:29:02 OBGyn Episode No OBEpisode recorded.
--- OUTSIDE RECORDS SUMMARY | 2025-05-19 12:28 | XMS_ITS | Encounter Summary ---
Author Organization [facility] Address [address] [place] [address] Care Team Providers Care Dust Puller Name Role Phone Unavailable Primary Care Provider Unavailabl e Encounter Details Date Type Department Care Team (Late st Contact Info) Description 11/09/2007 Outpatient Historical [facility] EDP [employer] [facility] 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
--- OUTSIDE RECORDS SUMMARY | 2025-05-19 12:28 | XMS_ITS | Clinical Summary ---
Author Organization [facility] Address [address] Attn: Epic Prelude ADT [place] [address] Care Team Providers Care Rail Car Repairer Name Role Phone Unavailable Primary Care Provider Unavailabl e Immunizations Immunization Administration Dates Next Due Influenza Seasonal Unspecified Formulation IM Social History Tobacco Use Types Packs/Day Years Used Date Smoking Tobacco: Never Assessed Comments Unknown Sex and Gender Information Value Date Recorded Sex Assigned at Not on file Legal Sex Female 6:41 AM RISK MGR Gender Identity Not on file Sexual Orientation Not on file Plan of Treatment Health Maintenance Due Date Last Done Comments DTAP/TDAP/TD VACCINES (1 - Tdap) 1972 BREAST CANCER SCREENING 1993 COLORECTAL SCREENING 1998 Colorectal Cancer Screening 1998 FIT-DNA Q 3 years 1998 FIT/FOBT Q 1 year 1998 Flex Sig/CT Colonography Q 5 years 1998 PNEUMOCOCCAL VACCINE 50+ YEARS (1 of 1 - PCV) 04/28/20 03 ZOSTER VACCINE (1 of 2) 2003 OSTEOPOROSIS SCREENING 2018 INFLUENZA VACCINE (#1) 2025 09/06/2007 RSV VACCINE (60+ or ) (1 - 1-dose 75+ series) 2028
--- OUTSIDE RECORDS SUMMARY | 2025-05-19 12:28 | XMS_ITS | Encounter Summary ---
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 Gender Identity Not on file Sexual Orientation Not on file documented as of this encounter Plan of Treatment Not on file documented as of this encounter Procedures Procedure Name Priority Date/Time Associated Diagnosis Comments LIPID PANEL Routine 05/19/2007 8:57 AM CDT documented in this encounter Results * (ABNORMAL) LIPID PANEL (05/19/2007 8:57 AM CDT) CHOLESTEROL 250(H) 75 - 200 mg/dL INTERFACE SYSTEM HDL 41 40 - 60 mg/dL INTERFACE SYSTEM TRIGLYCERIDE 193 0 - 200 mg/dL INTERFACE SYSTEM GLUCOSE 128(H) 70 - 110 mg/dL INTERFACE SYSTEM CALCULATED LDL CHOLESTEROL 170(H) 0 - 130 mg/dL INTERFACE SYSTEM CALCULATED TOTAL CHOLESTEROL TO HDL RATIO 6.10(H) 3.27 - 4.44 INTERFACE SYSTEM 05/19/2007 8:57 AM CDT us Jose Velarde MD CHEMISTRY ORDERABLES Edited INTERFACE SYSTEM Refer to clinic/hospital department documented in this encounter Visit Diagnoses Not on filedocumented in this encounter
--- NOTE | 2025-05-19 13:00 | W.ED.CHESTPA ---
HPI - Chest Pain General: Chief Complaint: Chest Pain Stated Complaint: chest pain Time Seen by Provider: 05/19/25 12:40 History of Present Illness: 70-year-old female with a history of COPD, tobacco abuse in remission, aortic stenosis, type 2 diabetes, hyperlipidemia and hypertension who presents to the emergency room with chest pain. Says she started feeling somewhat nauseous earlier today and then she developed epigastric chest pain. She says it feels like a pressure, but also sharp radiates into her back. Says she was just sitting on the couch when this started. She is no longer nauseous. No cardiac history. No edema. Says she quit smoking 13 years ago. Related Data Home Medications ?Medication ?Instructions ?Recorded ?Confirmed citalopram 20 mg tablet (Celexa) 20 mg PO DAILY 03/20/20 05/19/25 empagliflozin 10 mg tablet 10 mg PO DAILY 03/20/20 05/19/25 (Jardiance) pravastatin 40 mg tablet 40 mg PO DAILY 03/20/20 05/19/25 tramadol 50 mg tablet 50 mg PO BID PRN Pain 03/20/20 05/19/25 trazodone 100 mg tablet 100 mg PO BEDTIME 03/20/20 05/19/25 albuterol sulfate 90 mcg/actuation 1 inh inhalation QID 07/21/24 05/19/25 aerosol inhaler omeprazole 20 mg capsule,delayed 20 mg PO DAILY 07/21/24 05/19/25 release amlodipine 10 mg tablet 10 mg PO QAM 05/19/25 05/19/25 calcium carbonate 500 mg PO TID 05/19/25 05/19/25 guaifenesin 1,200 mg tablet, 1,200 mg PO BID 05/19/25 05/19/25 extended release 12 hr (Mucinex) losartan 100 mg tablet 100 mg PO QPM 05/19/25 05/19/25 metformin 500 mg tablet,extended 1,000 mg PO BID 05/19/25 05/19/25 release 24 hr Previous Rx's ?Medication ?Instructions ?Recorded metoprolol tartrate 25 mg tablet 12.5 mg (1/2 x 25 mg) PO BID 30 05/15/24 days #30 tabs hydrocodone 5 mg-acetaminophen 325 1 tab PO Q6H PRN pain #20 tabs 05/19/25 mg tablet ondansetron 4 mg disintegrating 4 mg PO Q8H PRN nausea and 05/19/25 tablet vomiting #10 tabs Allergies Allergy/AdvReac Type Severity Reaction Status Date / Time No Known Allergies Allergy Verified 05/19/25 12:37 Review of Systems Narrative: Constitutional symptoms: Negative except as documented in HPI. Skin symptoms: Negative except as documented in HPI. Eye symptoms: Negative except as documented in HPI. ENMT symptoms: Negative except as documented in HPI. Respiratory symptoms: Negative except as documented in HPI. Cardiovascular symptoms: Negative except as documented in HPI. Gastrointestinal symptoms: Negative except as documented in HPI. Genitourinary symptoms: Negative except as documented in HPI. Musculoskeletal symptoms: Negative except as documented in HPI. Neurologic symptoms: Negative except as documented in HPI. Psychiatric symptoms: Negative except as documented in HPI. Endocrine symptoms: Negative except as documented in HPI. PFSH ED PFSH: Social History Smoking and tobacco/nicotine status: former use of tobacco/nicotine Alcohol intake: never Substance/Drug Use: never Physical Exam Narrative: EXAM NARRATIVE: General: Alert, no acute distress. Skin: Warm, dry. Head: Normocephalic, atraumatic. Neck: Supple, trachea midline. Eye: Extraocular movements intact Ears, nose, mouth and throat: mucosa moist. Cardiovascular: Regular, Normal peripheral perfusion. Respiratory: Lungs are clear to auscultation, respirations are non-labored, breath sounds are equal, Symmetrical chest wall expansion. Gastrointestinal: Soft, Nontender, Non distended Musculoskeletal: Normal ROM, no deformity. Neurological: Alert and oriented, No focal neurological deficit observed. Psychiatric: Cooperative, appropriate mood & affect. Course Vital Signs: Vital signs: Vital Signs Temperature 97.7 F 05/19/25 12:28 Pulse Rate 66 05/19/25 15:19 Respiratory Rate 18 05/19/25 15:19 Blood Pressure 161/52 05/19/25 15:19 Pulse Oximetry 94 05/19/25 15:19 Oxygen Delivery Me thod Room Air 05/19/25 15:19 MDM - Chest Pain Medical Decision Making Differential diagnosis for patient with chest pain includes but is not limited to and based on the above HPI, review of systems and physical exam: Pneumonia. unstable angina. angina. Acute coronary syndrome / NM. Pulmonary embolism. Costochondritis / musculoskeletal. Pleurisy. Pericarditis. Esophageal spasm. Pancreatis. Cholecystitis. Orders placed to evaluate differential diagnosis based on the above differential, HPI and physical exam EKG: Time 1233. Rate 59. Sinus bradycardia, No ST-T changes, no ectopy, normal MT & QRS intervals, This was reviewed and interpreted by myself the ER physician at 1238 Chest x-ray: No acute process. No infiltrate. No pneumothorax. This was reviewed and interpreted by myself the emergency room physician. I also reviewed the radiology report. Lab Review: Laboratory results were reviewed and interpreted by myself the emergency room physician. No leukocytosis. No anemia. No renal failure. Serial cardiac markers are negative. Lipase is negative. Urinalysis is negative for infection. Ultrasound gallbladder: Mildly high tropic gallbladder with stones and sludge. No evidence of cholecystitis. Normal bile duct. This was reviewed and interpreted by myself the emergency room physician. I also reviewed the radiology report. I reviewed the patient's medical record. Reexamination: Patient is feeling quite a bit better now. We discussed findings. No altered mental status. No increased work of breathing. She will follow with general surgery. Assessment and plan: Noncardiac chest pain Biliary colic Next - Discharged home - Discussed plan with patient. Answered any questions. - Evaluation and treatment of this problem were appropriate in the emergency setting. Lab Data 05/19/25 12:59 05/19/25 12:59 Radiology Impressions Chest X-Ray 05/19/25 12:22 IMPRESSION: Stable chest with no acute abnormality. Gallbladder Ultrasound 05/19/25 15:07 IMPRESSION: 1. Mildly hydropic gallbladder with stones and sludge. No pericholecystic fluid or gallbladder wall thickening. 2. Normal common bile duct size. 3. RIGHT renal cyst, 1.7 cm. Laboratory Results WBC 9.40 10^3/uL (3.29-11.43) 05/19/25 12:59 RBC 4.88 10^6/uL (3.85-5.65) 05/19/25 12:59 Hgb 15.40 g/dL (11.27-16.99) 05/19/25 12:59 Hct 46.0 % (36-47) 05/19/25 12:59 MCV 94.3 fl (85-98) 05/19/25 12:59 MCH 31.6 pg (27-33) 05/19/25 12:59 MCHC 33.5 g/dL (30-55) 05/19/25 12:59 RDW 13.2 % (12.1-15.1) 05/19/25 12:59 Plt Count 291 10^3/cmm (157-399) 05/19/25 12:59 MPV 9.3 fL (7.4-10.4) 05/19/25 12:59 Neut % (Auto) 67.1 % 05/19/25 12:59 Lymph % (Auto) 23.5 % 05/19/25 12:59 Schley % (Auto) 5.9 % 05/19/25 12:59 Eos % (Auto) 2.3 % 05/19/25 12:59 Baso % (Auto) 0.9 % 05/19/25 12:59 Neut # (Auto) 6.31 10^3/uL (1.8-7.7) 05/19/25 12:59 Lymph # (Auto) 2.2 10^3/uL (0.8-4.8) 05/19/25 12:59 Schley # (Auto) 0.6 10^3/uL (0.2-0.9) 05/19/25 12:59 Eos # (Auto) 0.2 10^3/uL (0.0-0.8) 05/19/25 12:59 Baso # (Auto) 0.1 10^3/uL (0.0-0.1) 05/19/25 12:59 Nucleated RBC % (auto) 0 % 05/19/25 12:59 Nucleated RBCs # 0.0 /100WBC 05/19/25 12:59 Sodium 143 mmol/L (136-145) 05/19/25 12:59 Potassium 4.4 mmol/L (3.5-5.1) 05/19/25 12:59 Chloride 103 mmol/L (98-107) 05/19/25 12:59 Carbon Dioxide 28 mmol/L (22-29) 05/19/25 12:59 Anion Gap 16.4 (5-19) 05/19/25 12:59 BUN 18 mg/dL (8-23) 05/19/25 12:59 Creatinine 0.8 mg/dL (0.5-0.9) 05/19/25 12:59 GFR Calculation Not Reportable 05/19/25 12:59 Glucose 113 mg/dL (65-115) 05/19/25 12:59 Calculated Osmolality 299 mOsm/kg (285-295) H 05/19/25 12:59 Lactic Acid 1.4 mmol/L (0.5-2.2) 05/19/25 12:59 Calcium 9.9 mg/dL (8.5-10.5) 05/19/25 12:59 Total Bilirubin 0.3 mg/dL (0.15-1.2) 05/19/25 12:59 AST 15 U/L (0-32) 05/19/25 12:59 ALT < 5 U/L (0-33) 05/19/25 12:59 Alkaline Phosphatase 79 U/L (35-105) 05/19/25 12:59 Troponin T Baseline < 6 ng/L (0-10) 05/19/25 12:59 Troponin T 120 Minute < 6.0 ng/L (0-10) 05/19/25 14:41 Delta Troponin T 0 ABS# (0-10) 05/19/25 14:41 NT-Pro-B Natriuret Pep 338 pg/mL (0-125) H 05/19/25 12:59 Total Protein 8.0 g/dL (6.6-8.7) 05/19/25 12:59 Albumin 4.8 g/dL (3.5-5.2) 05/19/25 12:59 Globulin 3.2 g/dL (1.3-4.6) 05/19/25 12:59 Lipase 55 U/L (13-60) 05/19/25 12:59 Urine Color Yellow (Yellow) 05/19/25 13:15 Urine Appearance Clear (CLEAR) 05/19/25 13:15 Urine pH 6.0 (5-7) 05/19/25 13:15 Ur Specific [place] 1.012 (1.005-1.030) 05/19/25 13:15 Urine Protein 3+ (Negative) A 05/19/25 13:15 Urine Glucose (UA) 2+ (Normal) H 05/19/25 13:15 Urine Ketones Negative (Negative) 05/19/25 13:15 Urine Blood Trace (Negative) A 05/19/25 13:15 Urine Nitrate Negative (Negative) 05/19/25 13:15 Urine Bilirubin Negative (Negative) 05/19/25 13:15 Urine Urobilinogen 0.2 mg/dL (Negative) 05/19/25 13:15 Ur Leukocyte Esterase Negative (Negative) 05/19/25 13:15 Urine RBC 0-2 /hpf (0-2) 05/19/25 13:15 Urine WBC 0-5 /hpf (0-5) 05/19/25 13:15 Ur Squamous Epith Cells 0-5 /hpf (0-5) 05/19/25 13:15 Amorphous Sediment Not Reportable 05/19/25 13:15 Urine Bacteria None seen /hpf (NONE) 05/19/25 13:15 Hyaline Casts 0-4 /lpf H 05/19/25 13:15 Influenza A (PCR) Negative (Negative) 05/19/25 13:01 Influenza Type B (PCR) Negative (Negative) 05/19/25 13:01 RSV (PCR) Negative (Negative) 05/19/25 13:01 SARS-CoV-2 (PCR) Negative (Negative) 05/19/25 13:01 All radiology interpretation(s) finalized by discharge Discharge Plan Discharge Patient Disposition: Home Clinical Impression: Non-cardiac chest pain, Biliary colic Condition: Stable Prescriptions: New hydrocodone-acetaminophen 5-325 mg tablet 1 tab PO Q6H PRN (Reason: pain) Qty: 20 0RF ondansetron 4 mg tablet,disintegrating 4 mg PO Q8H PRN (Reason: nausea and vomiting) Qty: 10 0RF No Action trazodone 100 mg tablet 100 mg PO BEDTIME citalopram [Celexa] 20 mg tablet 20 mg PO DAILY Jardiance 10 mg tablet 10 mg PO DAILY tramadol 50 mg tablet 50 mg PO BID PRN (Reason: Pain) pravastatin 40 mg tablet 40 mg PO DAILY albuterol sulfate 90 mcg/actuation HFA aerosol inhaler 1 inh inhalation QID omeprazole 20 mg capsule,delayed release(DR/EC) 20 mg PO DAILY metoprolol tartrate 25 mg tablet 12.5 mg PO BID 30 Days Qty: 30 5RF calcium carbonate [Calcium 500] 500 mg calcium (1,250 mg) Tablet 500 mg PO TID amlodipine 10 mg tablet 10 mg PO QAM metformin 500 mg tablet extended release 24 hr 1,000 mg PO BID guaifenesin [Mucinex] 1,200 mg Tablet Extended Release 12hr 1,200 mg PO BID losartan 100 mg tablet 100 mg PO QPM Discharge Orders: Discharge ED (Routine); Ordered 05/19/25 Ordered By: Isidra Kidd Referrals: Bryan George MD [Physician, General Surgery] - 4-7 days Referral Note: Please call for follow-up appointment to consider removal of your gallbladder with general surgery. Bola Carpenter MD [Primary Care Provider, Family Practice] Discharge Diet: As Directed Discharge Activity: Increase activity as tolerated Patient Instructions: Biliary Colic (ED), Low Fat Diet (ED), Opioid Safety, Pain Management, Patient Portal & [place] Instructions Activity Restrictions/Additional Instructions: If you develop uncontrolled pain, fever, altered mental status or other concerning symptoms please seek medical attention. Thank you for choosing [facility] for your healthcare needs today. You have been screened and evaluated and felt safe for discharge. Health conditions do change or evolve sometimes and as such it is important that you follow up with your Primary Doctor to be re checked, 3-5 days is a general good time frame for follow up. You are always welcome to return to the ED for re assessment if your symptoms are worsening or you have new concerns Print Language: South Korean Coding Level of Care Code ED Lead Supply Worker for Marisol Do
[2025-05-19 13:08] LABS: Hematocrit 46.0 % (36-47); Hemoglobin 15.40 g/dL (11.27-16.99); Mean Corpuscular HGB Conc 33.5 g/dL (30-55); Mean Corpuscular Hemoglobin 31.6 pg (27-33); Mean Corpuscular Volume 94.3 fl (85-98); Nucleated Red Blood Cells % 0 %; Platelet Count 291 10^3/cmm (157-399); Red Blood Count 4.88 10^6/uL (3.85-5.65); White Blood Count 9.40 10^3/uL (3.29-11.43)
[2025-05-19 13:15] VITALS: BP 164/68; PULSE 62; RESP 16; O2SAT 96
[2025-05-19 13:21] LABS: Glucose Urine UA 2+ (Normal); Nitrate Urine Negative (Negative); Specific Gravity, Urine 1.012 (1.005-1.030)
[2025-05-19 13:29] LABS: Lactic Sepsis W/Reflex 1.4 mmol/L (0.5-2.2); Troponin(5th) Baseline < 6 ng/L (0-10)
[2025-05-19 13:41] LABS: Alanine Aminotransferase < 5 U/L (0-33); Albumin Level 4.8 g/dL (3.5-5.2); Alkaline Phosphatase 79 U/L (35-105); Anion Gap 16.4 (5-19); Aspartate Amino Transferase 15 U/L (0-32); Blood Urea Nitrogen 18 mg/dL (8-23); Calcium 9.9 mg/dL (8.5-10.5); Carbon Dioxide 28 mmol/L (22-29); Chloride 103 mmol/L (98-107); Creatinine Clr Calc Pharmacy 64.7573; Globulin 3.2 g/dL (1.3-4.6); Glucose 113 mg/dL (65-115); Lipase 55 U/L (13-60); NT Pro B Type Natriuretic Pept 338 pg/mL (0-125); Osmolality Calculated 299 mOsm/kg (285-295); Potassium 4.4 mmol/L (3.5-5.1); Sodium 143 mmol/L (136-145); Total Protein 8.0 g/dL (6.6-8.7)
[2025-05-19 13:46] LABS: Respiratory Syncytial Virus Ce NEGATIVE (Negative); SARS-CoV-2 PCR NEGATIVE (Negative)
--- NOTE | 2025-05-19 14:25 | ECG_ITS ---
[facility] Test Date: 2025-05-19 Pat Name: Lucinda Huynh Department: Room: Gender: Female Development Professional: : [id number] Requested By: Kristian Rodriguez Order Number: [id number] Lissette MD: Jin Zarate M.D. Measurements Intervals [place] Rate: 63 P: 56 RI: 164 QRS: 3 QRSD: 85 T: 21 QT: 396 QTc: 408 Interpretive Statements SINUS RHYTHM POSSIBLE LEFT ATRIAL ENLARGEMENT [-0.1mV P-WAVE IN V1/V2] LOW QRS VOLTAGE IN PRECORDIAL LEADS [QRS DEFLECTION < 1.0 mV IN CHEST LEADS] PATTERN CONSISTENT WITH PULMONARY DISEASE Compared to ECG 05/19/2025 12:33:28 Sinus bradycardia no longer present Electronically Signed On 05-19-2025 16:48:34 CDT by Jin Zarate M.D. [email or web address]
[2025-05-19 15:01] LABS: Troponin 5 2HR < 6.0 ng/L (0-10); Troponin 5 2HR Delta 0 ABS# (0-10)
--- NOTE | 2025-05-19 15:07 | US_ITS ---
WS: [id number] RIGHT UPPER QUADRANT ULTRASOUND HISTORY: Right upper quadrant pain, concern for cholecystitis COMPARISON: None available. Liver: 15.2 cm in length. Normal size liver and echogenicity. No bile duct dilatation or mass. Portal Vein: Normal hepatopetal flow with monophasic waveform. Gallbladder: Slightly hydropic gallbladder with stones and sludge. No gallbladder wall thickening. No pericholecystic fluid. CBD: 0.6 cm Pancreas: Limited. Right kidney: 11.3 cm in length. Normal size kidney. Cortical cyst lower pole 1.1 x 1.7 x 1.3 cm. Aorta and IVC: Unremarkable abdominal aorta and IVC. No ascites. US/US gall bladder [id number] IMPRESSION: 1. Mildly hydropic gallbladder with stones and sludge. No pericholecystic flui d or gallbladder wall thickening. 2. Normal common bile duct size. 3. RIGHT renal cyst, 1.7 cm.
[2025-05-19 15:19] VITALS: BP 161/52; PULSE 66; RESP 18; O2SAT 94
[2025-05-19 16:01] VITALS: BP 158/57; PULSE 65; O2SAT 66
== END 2025-05-19 16:10 | disposition home or self-care (01) ==
PROVIDERS: Emergency Medicine; Emergency Provider Emergency Medicine; PCP Family Medicine
DX: R07.89 Other chest pain (principal); K80.50 Calculus of bile duct without cholangitis or cholecystitis without obstruction; Z11.52 Encounter for screening for COVID-19; Z79.84 Long term (current) use of oral hypoglycemic drugs; Z87.891 Personal history of nicotine dependence; J44.9 Chronic obstructive pulmonary disease, unspecified; E11.9 Type 2 diabetes mellitus without complications; I10 Essential (primary) hypertension; E78.5 Hyperlipidemia, unspecified
CPT/HCPCS: 36415; 71045; 76705; 80053; 81001; 83605; 83690; 83880; 84484; 85025; 87637; 93005; 99285

== ENCOUNTER 2025-05-21 07:04 | Observation (INO) | payer MEDICARE, OTHER, SELFPAY ==
[2025-05-21] VITALS (24 sets, daily range): BP systolic 116–179; BP diastolic 51–96; PULSE 64–107; RESP 14–21; TEMP 36.1–37.4; O2SAT 90–97; BMI 34.7
[2025-05-21 07:16] LABS: Hematocrit 46.3 % (36-47); Hemoglobin 15.20 g/dL (11.27-16.99); Mean Corpuscular HGB Conc 32.8 g/dL (30-55); Mean Corpuscular Hemoglobin 30.5 pg (27-33); Mean Corpuscular Volume 93.0 fl (85-98); Nucleated Red Blood Cells % 0 %; Platelet Count 283 10^3/cmm (157-399); Red Blood Count 4.98 10^6/uL (3.85-5.65); White Blood Count 14.57 10^3/uL (3.29-11.43)
--- OUTSIDE RECORDS SUMMARY | 2025-05-21 07:18 | XMS_ITS | Data Portability ---
Author Organization HECTOR Aaron [facility], [facility] Address [address] [address] Care Team Providers Care Site Identification Specialist Name Role Phone TIMOTEO STUART Primary Care [...] A1C/hemog lobin total, QN, blood 2024 025 Formerly [facility], [address], [address], 11/25/2024 09:29:45 BMP, serum or plasma 2024 025 Formerly [facility], [address], [address], 11/25/2024 17:52:05 HbA1c (hemoglob in A1c), blood 2023 024 [facility] [address] [place] [address], [address], 05/27/2024 10:18:16 TSH, serum or plasma 2023 024 [facility] [address] [place], [address], 05/27/2024 10:40:11 lipid panel, blood 2023 024 Formerly [facility], [address], [address], [place], [address], 05/27/2024 10:40:21 CMP, serum or plasma 2023 024 [facility], [address], [address], [place], [address], 05/27/2024 10:39:07 CBC 2023 024 [facility], [address] [facility], [address], [place], [address], 05/27/2024 10:05:44 Referral None recorded. Procedures None recorded. Surgeries None recorded. Imaging None recorded. Medication Orders ondansetr on 4 mg disintegr ating tablet 2023 024 3 [facility]/Pharmacy #[id number], [address], [facility], [place], [address], 12/02/2024 10:19:12 omeprazol e 20 mg capsule,d elayed release 2023 024 [facility]/Pharmacy #[id number], [address], [address], [place], [address], 06/03/2024 10:12:14 pravastat in 40 mg tablet 2023 024 [id number], [address], [address], [place], [address], 06/03/2024 10:12:14 Patient TargetsNo targets recorded. Patient Instructions Encounter Date Encounter Id Patient Instructions Last Modified By Organization Details Last Modified Time 06/03/2024 [id number] lost son unexpectedly; mostly handling okay, but he was her best friend labs reviewed and excellent regularly gets nauseous; random times; lots of heartburn despite taking pepsid; will perscirbe omeprazole following with cardiology [email or web address] Not available 06/03/2024 10:09:58 Reason for Referral None Reported. Results Created Date Observation Date Name Description Value Unit Range Abnormal Flag Note LastModifiedBy Organization Detail LastModifiedTime 05/27/2005/27/2024 CBC WBC 6.8 x10 4.0-10 .5 Not Available [facility] [address] [facility], [place], [address], 05/27/2024 10:05:44 05/27/2005/27/2024 CBC RBC 4.60 x10 3.50-5 .50 Not Available [facility] [address] [facility], [place], [address], 05/27/2024 10:05:44 05/27/20 24 05/27/2024 CBC HGB 15.0 g/dL 12.0-1 6.0 Not Available [facility] [address] [facility], [place], [address], 05/27/2024 10:05:44 05/27/20 24 05/27/2024 CBC HCT 43.6 % 37.0-4 7.0 Not Available [facility] [address] [facility], [place], [address], 05/27/2024 10:05:44 05/27/2005/27/2024 CBC MCV 94.7 fL 80.0-9 9.9 Not Available [facility] [address] [facility] 1, [place], [address], 05/27/2024 10:05:44 05/27/2005/27/2024 CBC MCH 32.6 pg 27.0-3 2.0 high Not Available [facility] [address] [facility] 1, [place], [address], 05/27/2024 10:05:44 05/27/2005/27/2024 CBC MCHC 34.4 g/dL 32.0-3 6.0 Not Available [facility] [address] [facility] 1, [place], [address], 05/27/2024 10:05:44 05/27/2005/27/2024 CBC RDW 13.6 % 11.5-1 4.5 Not Available [facility] [address] [facility] 1, [place], [address], 05/27/2024 10:05:44 05/27/2005/27/2024 CBC plt 259.2 x10 140.0- 451.0 Not Available [facility] [address] [facility] 1, [place], [address], 05/27/2024 10:05:44 05/27/20 24 05/27/2024 CBC lymphocytes % 27.5 % 20.0-5 0.0 Not Available [facility] [address] [facility], [place], [address], 05/27/2024 10:05:44 05/27/2005/27/2024 CBC granulcytes % 63.1 % 30.0-7 0.0 Not Available [facility] [address] [facility] 1, [place], [address], 05/27/2024 10:05:44 05/27/2005/27/2024 CBC monocytes % 7.7 % 2.0-16 .0 Not Available [facility] [address] [facility] 1, [place], [address], 05/27/2024 10:05:44 05/27/20 24 05/27/2024 CBC granulcytes# 4.3 x10 Not [facility] [address] [facility] 1, [place], [address], 05/27/2024 10:05:44 05/27/20 24 05/27/2024 CBC lymphocytes # 1.9 x10 Not Available [facility] [address] [facility] 1, [place], [address], 05/27/2024 10:05:44 05/27/20 24 05/27/2024 CBC monocytes # 0.5 x10 Not Avai lable [facility] [address] [address], [place], [address], 05/27/2024 10:05:44 05/27/20 24 05/27/2024 CMP (FEMA LE) glucose 158.0 mg/dL 60.0-9 9.0 high Not Available [facility] [address] [facility] 1, [place], [address], 05/27/2024 10:39:07 05/27/20 24 05/27/2024 CMP (FEMA LE) BUN (blood urea nitrogen) 14.0 mg/dL 10.0-2 6.0 Not Available [facility] [address] [address], [place], [address], 05/27/2024 10:39:07 05/27/20 24 05/27/2024 CMP (FEMA LE) creatinine (serum) 1.0 mg/dL 0.4-1. 5 Not Available [facility] [address] [address], [place], [address], 05/27/2024 10:39:07 05/27/20 24 05/27/2024 CMP (FEMA LE) BUN/creatini ne ratio 13.46 ratio Not Available [facility] [address] [facility] [address] [address], [place], [address], 05/27/2024 10:39:07 05/27/20 24 05/27/2024 CMP (FEMA LE) eGFR calculated 55.5 Not Available [facility] [address] [facility] 1, [place], [address], 05/27/2024 10:39:07 05/27/20 24 05/27/2024 CMP (FEMA LE) total protein 7.8 g/dL 6.0-8. 5 Not Available [facility] [address] [facility] 1, [place], [address], 05/27/2024 10:39:07 05/27/20 24 05/27/2024 CMP (FEMA LE) total bilirubin 0.5 mg/dL 0.2-1. 3 Not Available [facility] [address] [facility] 1, [place], [address], 05/27/2024 10:39:07 05/27/20 24 05/27/2024 CMP (FEMA LE) albumin 4.5 g/dL 3.5-5. 5 Not Available [facility] [address] [facility] 1, [place], [address], 05/27/2024 10:39:07 05/27/20 24 05/27/2024 CMP (FEMA LE) globulin 3.3 calc Not Available [facility] [address] [facility] 1, [place], [address], 05/27/2024 10:39:07 05/27/20 24 05/27/2024 CMP (FEMA LE) AST (SGOT) 24.0 U/L 0.0-46 .0 Not Available [facility] [address] [facility] 1, [place], [address], 05/27/2024 10:39:07 05/27/20 24 05/27/2024 CMP (FEMA LE) altv (SGPT) 11.0 U/L 13.0-6 9.0 abnormal Not Available [facility] [address] [facility], [place], [address], 05/27/2024 10:39:07 05/27/20 24 05/27/2024 CMP (FEMA LE) A/G ratio 1.4 ratio Not Available [facility] [address] [facility] 1, [place], [address], 05/27/2024 10:39:07 05/27/20 24 05/27/2024 CMP (FEMA LE) ALP phos 67.0 U/L 30.0-1 40.0 normal Not Available [facility] [address] [facility] 1, [place], [address], 05/27/2024 10:39:07 05/27/20 24 05/27/2024 CMP (FEMA LE) calcium 9.7 mg/dL 8.4-10 .5 Not Available [facility] [address] [facility] 1, [place], [address], 05/27/2024 10:39:07 05/27/20 24 05/27/2024 CMP (FEMA LE) sodium 140.0 mmol/ L 136.0- 145.0 Not Available [facility] [address] [facility] 1, [place], [address], 05/27/2024 10:39:07 05/27/20 24 05/27/2024 CMP (FEMA LE) potassium 4.4 mmol/ L 3.5-5. 1 Not Available [facility] [address] [facility] 1, [place], [address], 05/27/2024 10:39:07 05/27/20 24 05/27/2024 CMP (FEMA LE) chloride 104.0 mmol/ L 98.0-1 10.0 normal Not Available [facility] [address] [facility], [place], [address], 05/27/2024 10:39:07 05/27/20 24 05/27/2024 CMP (FEMA LE) C02 28.0 mmol/ L 22.0-3 1.0 Not Available [facility] [address] [facility] 1, [place], [address], 05/27/2024 10:39:07 05/27/20 24 05/27/2024 CMP (FEMA LE) anion gap 8.0 calc Not Available [facility] [address] [facility] 1, [place], [address], 05/27/2024 10:39:07 05/27/20 24 05/27/2024 CMP (FEMA LE) osmolality 292.6 calc Not Available [facility] [address] [facility] 1, [place], [address], 05/27/2024 10:39:07 05/27/20 24 05/27/2024 LIPID PROFI LE (FEMA LE) cholesterol 176.0 mg/dL 0.0-20 0.0 Not Available [facility] [address] [facility] 1, [place], [address], 05/27/2024 10:40:20 05/27/20 24 05/27/2024 LIPID PROFI LE (FEMA LE) trig 210.0 mg/dL 0.0-15 0.0 high Not Available [facility] [address] [facility] 1, [place], [address], 05/27/2024 10:40:20 05/27/20 24 05/27/2024 LIPID PROFI LE (FEMA LE) HDL - direct 44.0 mg/dL >40.0 Not Available [facility] [address] [facility] 1, [place], [address], 05/27/2024 10:40:20 05/27/20 24 05/27/2024 LIPID PROFI LE (FEMA LE) VLDL - direct 42.0 mg/dL Not Available [facility] [address] [facility] 1, [place], [address], 05/27/2024 10:40:20 05/27/20 24 05/27/2024 LIPID PROFI LE (FEMA LE) LDL - direct 90.0 mg/dL 0.0-13 0.0 Not Available [facility] [address] [facility] 1, [place], [address], 05/27/2024 10:40:20 05/27/20 24 05/27/2024 TSH, serum or plasm a TSH 0.96 uIU/m L 0.49-3 .82 normal Not Available [facility] ([facility]) [address] [place] [address], [address], 05/27/2024 09:40:29 05/27/20 24 05/27/2024 HbA1c (hemo globi n A1c), blood HbA1c 6.6 Not Available [facility] ([facility]) [address] [place] [address], [address], 05/27/2024 09:40:22 11/18/1911/25/2024 HBA1C hemaglobin A1C 6.6 4.2-6. 5 high Not Available [facility] [address] [address], [place], [address], 11/25/2024 09:29:45 11/18/1911/25/2024 BMP (FEMA LE) glucose 156.0 mg/dL 60.0-9 9.0 high Not Available [facility] [address] [facility] 1, [place], [address], 11/25/2024 17:52:05 11/18/1911/25/2024 BMP (FEMA LE) BUN (blood urea nitrogen) 12.0 mg/dL 10.0-2 6.0 Not Available [facility] [address] [facility] 1, [place], [address], 11/25/2024 17:52:05 11/18/19 25 11/25/2024 BMP (FEMA LE) creatinine (serum) 1.0 mg/dL 0.4-1. 5 Not Available [facility] [address] [facility] 1, [place], [address], 11/25/2024 17:52:05 11/18/1911/25/2024 BMP (FEMA LE) BUN/creatini ne ratio 12.00 ratio Not Available [facility] [address] [facility] 1, [place], [address], 11/25/2024 17:52:05 11/18/19 25 11/25/2024 BMP (FEMA LE) calcium 9.5 mg/dL 8.4-10 .5 Not Available [facility] [address] [facility] 1, [place], [address], 11/25/2024 17:52:05 11/18/1911/25/2024 BMP (FEMA LE) sodium 141.0 mmol/ L 136.0- 145.0 Not Available [facility] [address] [facility] 1, [place], [address], 11/25/2024 17:52:05 11/18/1911/25/2024 BMP (FEMA LE) potassium 4.3 mmol/ L 3.5-5. 1 Not Available [facility] [address] [facility] 1, [place], [address], 11/25/2024 17:52:05 11/18/1911/25/2024 BMP (FEMA LE) chloride 107.0 mmol/ L 98.0-1 10.0 normal Not Available [facility] [address], [place], [address], 11/25/2024 17:52:05 11/18/19 25 11/25/2024 BMP (FEMA LE) C02 31.0 mmol/ L 22.0-3 1.0 Not Available [facility] [address], [place], [address], 11/25/2024 17:52:05 11/18/19 25 11/25/2024 BMP (FEMA LE) anion gap 3.0 calc Not Available [facility] [address], [place], [address], 11/25/2024 17:52:05 04/06/20 25 04/06/2025 COLOG UARD [...] adult s 45 years or older at [facility] risk for CRC. A posit [...] and had a 91% speci ficit y ([facility] morenita Cantu ure. Exact Scien colten Corpo ratio n. [place], [place] Visit www.[facility] [employer] /abou t/acc uracy -sens itivi ty-sp [facility] for more test infor matmerary n, refer emily de la garza ngs, and preca ution s. Not Available [facility] (Cologuard Orders Only) [address], [place], [address], 04/14/2025 06:00:48 07/15/20 24 07/15/2024 MAMMO , scree tha, digit al, bilat eral No observ ation record ed. [facility] [address] [place], [address], 07/16/2024 15:03:47 Result Notes None recorded. Problems Name Problem SNOMED Code Status Onset Date Resolution Date Notes Provider Name and Address Organization Details Recorded Time Disorder due to type 2 diabetes mellitus 871434064 Active 2022 DIABETES MELLITUS WITH COMPLICAT ION; Recorded 3 8:20AM by Estefani Curry RN, Office Visit; Promoted; acuity set as *; Not Available [facility] 3 03:11:08 Benign essential hypertens ion 0514401 Active 2022 Hypertens ion; 3 8:20AM by Estefani Curry RN, Office Visit; Promoted; acuity set as *; Not Available [facility] 3 03:11:08 Hyperlipi demia 21523723 Active 2022 Hyperlipi demia; 3 8:20AM by Estefani Curry RN, Office Visit; Promoted; acuity set as *; Not Available [facility] 3 03:11:08 Type 2 diabetes mellitus without complicat ion 059065079 Active 2022 Non-Insul in Dependent Diabetes Mellitus; 3 8:20AM by Estefani Curry RN, Office Visit; Promoted; acuity set as *; Not Available [facility] 3 03:11:08 Persisten t insomnia 561601638 Active 2022 ESTEFANI CURRY [facility], [facility] 3 15:41:01 Essential hypertens ion 52575037 Active 2022 Timoteo Stuart [address], [address] , [facility] 3 10:40:29 Hyperglyc emia due to type 2 diabetes mellitus 13078480649 9109 Active 2022 Timoteo Stuart DO [address] [place], [address] , [facility] 3 10:40:31 Anxiety 85449877 Active 2023 ESTEFANI flannery [facility] 4 10:46:43 Morbid obesity 570996626 Active 2023 ESTEFANI flannery, [facility] 4 10:46:51 Echocardi ogram abnormal 782655739 Active 2023 ESTEFANIWENDY flannery [facility] 4 13:20:23 Problem Notes None recorded. Procedures Surgical History Date Name Laterality Status Provider Name and Address Organization Details Recorded Time colonoscopy completed ETHAN REEVES [address] [place], [address], [facility] 04/14/2025 15:00:55 Tubal Ligation completed Laurel Obrien [facility] 12/02/2024 10:21:30 lumpectomy of left breast completed Laurel Obrien [facility] 12/02/2024 10:21:44 Imaging Results None recorded. Procedure [...] 12/04 completed for choleste rol VO CS/smf; 26123; Recorded 11/05/19 23 8:02AM by Alejandra Curry RN (Authori zed through Timoteo Stuart DO), Refill Request; Mail Order Quantity : 90 Tablet; Refill Quantity : 30; Tablet; Not Available Not Available Not Available glipizide every morning 12/04 completed cs/smf *do not fill until requeste d*; 40876; Recorded 11/01/20 22 8:58AM by Isabel Da Silva (Authori nona through Osmel Rahman DO), Refill Request; Mail Order Quantity : 100 Tablet; Refill Quantity : 90; Tablet; Not Available Not Available Not Available metformin two times daily 12/04 completed 15103; Recorded 04/16/20 22 9:07AM by Alejandra Curry RN (Authori nona through Timoteo Stuart DO), Office Visit; Mail Order Quantity : 400 Tablet; Refill Quantity : 0; Not Available Not Available Not Available Trazodone at bedtime 12/04 completed cs/smf; 76129; Recorded 04/16/20 22 9:07AM by Alejandra Curry RN (Authori zed through Timoteo Stuart DO), Office Visit; Mail Order Quantity : 90 Tablet; Refill Quantity : 90; Tablet; Not Available Not Available Not Available Pen Needle twice a day 06/03 completed 95239; Recorded 06/12/20 22 6:26PM by Isabel Da Silva (Authori zed through Osmel Rahman DO), Annotati on/Adden dum; Mail Order Quantity : 100 Each; Mail Order Days: 90 Days; Refill Quantity : 0; Not Available Not Available Not Available [employer] Pen Needle 31 gauge x 1/4 06/03 completed Not Available Not Available Not Available amlodipin e besylate (bulk) daily 12/04 completed 87692; Recorded 12/17/19 23 7:29AM by Alejandra Curry [...] Not Avai lable Jardiance daily 12/04 completed 24131; Recorded 01/08/20 23 7:50AM by Alejandra Curry RN (Authori nona through Timoteo Stuart DO), Refill Request; Mail Order Quantity : 90 Tablet; Refill Quantity : 0; Not Available Not Available Not Available losartan potassium (bulk) daily 12/04 completed cs/; 11188; Recorded 09/10/20 22 12:00PM by Alejandra Curry [...] Updated DateTime 5 158.5 cm 34.1 kg/m2 96156.2 4 g 93 % 93 % 49 /min 16 /min 97.2 [degF] 128/64 mm[Hg] [facility] 5 10:16:18 Date Recorded Body weight Respiratory rate Heart rate Oxygen saturation Oxygen saturation in Arterial blood by Pulse oximetry Systolic And Diastolic Provider Name and Address Organization Details Last Updated DateTime 4 47074.2 5 g 18 /min 62 /min 94 % 94 % 146/70 mm[Hg] ESTEFANI CURRY [facility] 4 09:53:13 Date Recorded Body weight Heart rate Oxygen saturation Oxygen saturation in Arterial blood by Pulse oximetry Body temperature Systolic And Diastolic Provider Name and Address Organization Details Last Updated DateTime 4 91169.5 7 g 87 /min 94 % 94 % 98.5 [degF] 142/68 mm[Hg] Ana Louis [facility] 4 10:27:22 Social History Question Answer Notes LastModified by [employer] Details LastModified Time Tobacco Smoking Status Former Smoker ESTEFANI CURRY [facility] 02/20/2023 12:03:17 Are You Blind Or Do You Have Difficulty Seeing? No [email or web address] Information not available 02/20/2023 Are You Deaf Or Do You Have Serious Difficulty Hearing? No Information not available 02/20/2023 Which Illicit Or Recreational Drugs Have You Used? Marijuana Occasionally [email or web address] Information not available 12/02/2024 When Did You Quit Smoking? 11-15yearssinjerica rey [email or web address] Information not available 02/20/2023 Have You Had Direct Contact, Or Contact During Intimacy, With Monkeypox Rash, Scabs, Or Body Fluids From A Person With Monkeypox? No [email or web address] Information not available 02/20/2023 What Is Your Current Pack Years? 30ormorepackyear s [email or web address] Information not available 12/02/2024 Have You Recently Traveled Abroad? No [email or web address] Information not available 02/20/2023 Do You Have Difficulty Walking Or Climbing Stairs? No Information not available 02/20/2023 Sex: Unknown Functional Status Question Answer Note LastModified by Organizat ion Details LastModified Time Do you use any illicit or recreational drugs? Yes [email or web address] Information not available 12/02/2024 What is your level of alcohol consumption? None [email or web address] Information not available 12/02/2024 Are you able to walk? YESWOREST [email or web address] Information not available 02/20/2023 Do you have difficulty doing errands alone? No [email or web address] Information not available 02/20/2023 Are you able to care for yourself? Yes [email or web address] Information n ot available 02/20/2023 Do you have difficulty dressing or bathing? No [email or web address] Information not available 02/20/2023 Mental Status Question Answer Note LastModified by Organization D etails LastModified Time Do you have difficulty concentrating, remembering or making decisions? No [email or web address] Information no t available 02/20/2023 Family History Nothing Reported. Medical History Condition Response Coronary Artery Disease N Other N Gout N Kidney Stones N Blood Diseases N Hyperthyroidism N Blood Transfusion N Breast Cancer N Depression Y COPD Y Lung Disease N Hypothyroidism N Defects or Inherited Disease N Developmental or Behavioral Disorders N Breast Problem N Difficulty Swallowing N Anesthesia Complications N Meniere's disease N Anxiety Disorder N Muscle, Joint, or Bone Problems Y Vision or Eye Problems N Arthritis N Polyps N Infertility N Cancer N Varicosities N Stroke N Endometriosis N Bladder or Kidney Problems N High Cholesterol Y Liver Disease N Fibromyalgia N Headaches N Kidney Disease N Allergies/Hayfever N Heart [...] N Heart Disease N Pulmonary Embolism N Pre-Eclampsia N Hypertension Y Chronic Ear Infections N Osteoporosis N Chicken Pox N Autism Spectrum Disorder (ASD) N Thrombophilias N Gynecological HistoryNo gynecological history recorded. Obstetrics History GPAL:G 0 P 0 0 0 0 Immunizations Vaccine Type Date Status Note Provider Nam e and Address Organization Details Recorded Time pneumococcal, unspecified formulation 3 completed Not Available [facility] 06/01/2023 02:51:15 Influenza, split virus, trivalent, preservative 3 completed Not Available [facility] 06/01/2023 02:51:15 Pneumococcal conjugate PCV 13 8 completed Not Available [facility] 06/01/2023 02:51:15 Influenza, split virus, trivalent, preservative 3 completed Not Available [facility] 06/01/2023 02:51:15 Influenza, split virus, trivalent, preservative 4 completed Not Available [facility] 06/01/2023 02:51:15 Influenza, split virus, trivalent, preservative 8 completed Not Available [facility] 06/01/2023 02:51:15 zoster live 8 completed Not Available [facility] 06/01/2023 02:51:16 zoster recombinant 9 completed Not Available [facility] 06/01/2023 02:51:16 Past Encounters Encounter ID Performer Location Encounter Start Date Encounter Closed Date Diagnosis/Indication Diagnosis SNOMED-CT Code Diagnosis ICD10 Code Diagnosis Note [id number] Timoteo Stuart DO [facility] ([facility]) [address] [place] [phone] 02/20/2023 11:54:32 02/21/2023 17:14:06 Chronic obstructive pulmonary disease 17030981 J44.9 Abdominal pain 44106729 R10.9 exam benign; I suspect from vomiting Nausea and vomiting 1692 1999 R11.2 [id number] Timoteo Stuart DO [facility] ([facility]) [address] [place] [phone] 05/27/2023 10:14:15 05/27/2023 12:51:30 Persistent insomnia 823234015 G47.09 Essential hypertension 20316484 I10 Hyperglyce prince due to type 2 diabetes mellitus 5563286992 87041 E11.65 [id number] Timoteo Stuart DO [facility] ([facility]) [address] [place] [phone] 11/21/2023 09:32:04 11/22/2023 12:16:57 Disorder due to type 2 diabetes mellitus 006705179 E11.8 [id number] Timoteo Stuart DO [facility]) [address] [place] [phone] 12/04/2023 12:30:11 12/04/2023 15:27:18 Benign essential hypertension [id number] I10 Disorder d ue to type 2 diabetes mellitus [id number] E11.8 Essential hypertension [id number] I10 Hyperlipidemia 35893112 E78.5 Anxiety 00477148 F41.9 Morbid obesity 612057842 E66.01 Nausea 525410006 R11.0 [id number] Timoteo Stuart DO [facility] ([facility]) [address] [place], [place] [address] 03/04/2024 11:00:20 03/04/2024 12:34:26 Chest pain 27392454 R07.9 Systolic murmur 76172808 R01.1 Bradycardia 78252994 R00 .1 [id number] Timoteo Stuart DO [facility] ([facility]) [address] [place], [place] [address] 05/27/2024 09:32:38 05/27/2024 10:21:27 Benign essential hypertension [id number] I10 Disorder d ue to type 2 diabetes mellitus 607048902 E11.8 Hyperlipidemia 09383512 E78.5 Anxiety 02284583 F41.9 [id number] Timoteo Stuart DO [facility] ([facility]) [address] [place] [phone] 06/03/2024 09:49:25 06/03/2024 10:15:56 Benign essential hypertension 1548248 I10 Type 2 frannie betes mellitus without complication 625554430 E11.9 Anticipatory grief 44147 004 F43.21 Hyperlipidemia 43589000 E78.5 Gastroesop hageal reflux disease without esophagitis 970525441 K21.9 [id number] ETHAN REEVES [facility] ([facility]) [address] [place] [address] 09/04/2024 10:23:02 09/04/2024 10:40:33 Acute gastroenteritis 13686671 K52.9 Discussed BRATS diet, small frequent sips of fluid. Rest.VSS. No signs of acute abd on exam today.If you develop fever, no urine output over 24 hours, bloody stools/treasure sis, abd pain, or concerns arise return for re-eval. [id number] Bola Carpenter MD [facility] ([facility]) [address] [place] [address] 11/25/2024 09:03:47 11/26/2024 10:25:42 Disorder due to type 2 diabetes mellitus 961915576 E11.8 [id number] Bola Carpenter MD [facility] ([facility]) [address] [place] [address] 12/02/2024 10:07:58 12/02/2024 10:31:40 Benign essential hypertension 8421595 I10 Controlled on current medication s. Type 2 frannie betes mellitus without complication [id number] E11.9 A1c was 6.6%. Continue current medication s. Persistent insomnia 1919 87666 G47.09 Doing well with trazodone Anxiety 28331924 F41.9 Continue citalopram . Health Concerns Section Related Observation LastModified by Organization Detai ls LastModified Time None Recorded Concern Status LastModified by Organization Details LastModified Time None Recorded Advance Directives Directive None Recorded Payers Insurance Date Sequence Insurance Name Policy Number Policy [place] Covered Member ID [place] Member ID Guarantor Name 04/12/2025 2 [employer] [place] (MEDICARE SUPPLEMENT) Lucinda A Ceresini [id number] Lucinda A Ceresini 04/12/2025 1 [place] Lucinda A Ceresini [id number] Lucinda A Ceresini 04/12/2025 [place] - [facility] (MEDICARE) Lucinda A Ceresini [id number] Lucinda A Ceresini Notes Date Note Type Note Provider Name and Address Organization Details Recorded Time 06/03/2024 text/html DiabetesReported bypatient.Duration:chr onic Control:usually well controlled Compliance:compliant with medications Timoteo Stuart DO [address] [place], [address], [facility] 06/03/2024 10:12:16 09/04/2024 text/html walk in ptpt has has n/v and diarrhea for 2 days. ETHAN REEVES [address] [place], [address], [facility], [place] 09/04/2024 10:40:16 12/02/2024 text/html This is a 69-yea r-old female comes in today to establish care. The patient was previously seeing Dr. Stuart. Patient states that this is her 6-month follow-up. The patient had lab work done last week. Patient denies any acute concerns today. Patient states that her chronic medical issues are stable. Bola Carpenter MD [address] [place], [address], [facility], [place] 12/05/2024 23:29:02 OBGyn Episode No OBEpisode recorded.
--- NOTE | 2025-05-21 07:25 | W.ED.ABDPA2 ---
HPI - Abdominal Pain General: Chief Complaint: Abdominal Pain Stated Complaint: abdomen pain Time Seen by Provider: 05/21/25 07:08 History of Present Illness: 70-year-old female presents emergency room with complaint of abdominal pain she was seen 2 days ago with similar complaints the gallbladder ultrasound showed some sludge in the gallbladder normal common bile duct . There is some mild hydrops but no wall thickening on the gallbladder. Associated Symptoms: Denies chills, dysuria and fever(s) Related Data Home Medications ?Medication ?Instructions ?Recorded ?Confirmed citalopram 20 mg tablet (Celexa) 20 mg PO DAILY 03/20/20 05/21/25 empagliflozin 10 mg tablet 10 mg PO DAILY 03/20/20 05/21/25 (Jardiance) pravastatin 40 mg tablet 40 mg PO DAILY 03/20/20 05/21/25 tramadol 50 mg tablet 50 mg PO BID PRN Pain 03/20/20 05/21/25 trazodone 100 mg tablet 100 mg PO BEDTIME 03/20/20 05/21/25 albuterol sulfate 90 mcg/actuation 1 inh inhalation QID 07/21/24 05/21/25 aerosol inhaler omeprazole 20 mg capsule,delayed 20 mg PO DAILY 07/21/24 05/21/25 release amlodipine 10 mg tablet 10 mg PO QAM 05/19/25 05/21/25 calcium carbonate 500 mg PO TID 05/19/25 05/21/25 guaifenesin 1,200 mg tablet, 1,200 mg PO BID 05/19/25 05/21/25 extended release 12 hr (Mucinex) losartan 100 mg tablet 100 mg PO QPM 05/19/25 05/21/25 metformin 500 mg tablet,extended 1,000 mg PO BID 05/19/25 05/21/25 release 24 hr Previous Rx's ?Medication ?Instructions ?Recorded metoprolol tartrate 25 mg tablet 12.5 mg (1/2 x 25 mg) PO BID 30 05/15/24 days #30 tabs hydrocodone 5 mg-acetaminophen 325 1 tab PO Q6H PRN pain #20 tabs 05/19/25 mg tablet ondansetron 4 mg disintegrating 4 mg PO Q8H PRN nausea and 05/19/25 tablet vomiting #10 tabs Allergies Allergy/AdvReac Type Severity Reaction Status Date / Time No Known Allergies Allergy Verified 05/19/25 12:37 Review of Systems Const: Denies: fever(s) or chills Card: Denies: chest pain Resp: Denies: dyspnea GI: Denies: abdominal pain : Denies: dysuria, urinary frequency or urinary urgency Musc: Denies: neck pain or back pain Skin/Breast: Denies: rash PFSH ED PFSH: Social History Smoking and tobacco/nicotine status: former use of tobacco/nicotine Alcohol intake: never Substance/Drug Use: never Physical Exam Const: COMMON NORMALS: no acute distress GENERAL APPEARANCE: cooperative and comfortable ORIENTATION/CONSCIOUSNESS: Yes awake, Yes oriented to person, Yes oriented to place and Yes oriented to time HENMT: COMMON NORMALS: normocephalic, atraumatic and hearing grossly normal bilaterally HEAD & SCALP: normocephalic and atraumatic Resp: COMMON NORMALS: normal respiratory effort, No retractions, No use of accessory muscles and clear to auscultation bilaterally AUSCULTATION: clear to auscultation bilaterally Cardio: COMMON NORMALS: regular rate, regular rhythm and No murmurs present (Cardio) RATE: regular rate RHYTHM: regular rhythm GI: COMMON NORMALS: Soft to palpation and No hepatosplenomegaly present AUSCULTATION: Yes normoactive bowel sounds PALPATION: Yes Soft to palpation, No Tenderness to palpation present (GI), No Guarding due to palpation present (GI) and Yes No hepatosplenomegaly present Extremity: COMMON NORMALS: normal to inspection, capillary refill normal, no clubbing, cyanosis or edema, no calf tenderness and no pedal edema Neuro: SENSORIUM/ORIENTATION: Yes oriented to person, Yes oriented to place and Yes oriented to time Skin: COMMON NORMALS: no rashes or lesions noted GENERAL SKIN EXAM: no rashes or lesions noted Course Vital Signs: Vital signs: Vital Signs Temperature 97.8 F 05/21/25 14:17 Pulse Rate 92 05/21/25 15:16 Respiratory Rate 20 H 05/21/25 15:16 Blood Pressure 161/73 05/21/25 15:16 Pulse Oximetry 94 05/21/25 15:16 Oxygen Delivery Me thod Nasal Cannula 05/21/25 15:16 Oxygen Flow Rate 2 05/21/25 15:16 Fraction of Inspir ed Oxygen 2 05/21/25 14:17 MDM - Abdominal Pain Medical Decision Making Patient now has elevated white count does have some hydrops thickening of gallbladder wall no signs of obstruction liver enzymes still normal. Patient given Zosyn. Discussed with hospitalist. Will admit to hospitalist service and consult surgery Dr. George is planning take patient for cholecystectomy reviewed findings with the patient Medical Records I reviewed the patient's medical records. Lab Data I reviewed the patient's lab results. 05/21/25 07:11 05/21/25 07:11 Labs/Radiology: Radiology Impressions Gallbladder Ultrasound 05/21/25 07:51 IMPRESSION: 1. Gallbladder hydrops with stones and sludge. Increase in amount of sludge since 05/19/2025. There is no pericholecystic fluid. No significant gallbladder wall thickening. Findings concerning for acute cholecystitis. 2. Normal common bile duct. Laboratory Results WBC 14.57 10^3/uL (3.29-11.43) H 05/21/25 07:11 RBC 4.98 10^6/uL (3.85-5.65) 05/21/25 07:11 Hgb 15.20 g/dL (11.27-16.99) 05/21/25 07:11 Hct 46.3 % (36-47) 05/21/25 07:11 MCV 93.0 fl (85-98) 05/21/25 07:11 MCH 30.5 pg (27-33) 05/21/25 07:11 MCHC 32.8 g/dL (30-55) 05/21/25 07:11 RDW 13.1 % (12.1-15.1) 05/21/25 07:11 Plt Count 283 10^3/cmm (157-399) 05/21/25 07:11 MPV 9.5 fL (7.4-10.4) 05/21/25 07:11 Neut % (Auto) 87.7 % 05/21/25 07:11 Lymph % (Auto) 8.0 % 05/21/25 07:11 [place] % (Auto) 3.4 % 05/21/25 07:11 Eos % (Auto) 0.1 % 05/21/25 07:11 Baso % (Auto) 0.5 % 05/21/25 07:11 Neut # (Auto) 12.78 10^3/uL (1.8-7.7) H 05/21/25 07:11 Lymph # (Auto) 1.2 10^3/uL (0.8-4.8) 05/21/25 07:11 [place] # (Auto) 0.5 10^3/uL (0.2-0.9) 05/21/25 07:11 Eos # (Auto) 0.0 10^3/uL (0.0-0.8) 05/21/25 07:11 Baso # (Auto) 0.1 10^3/uL (0.0-0.1) 05/21/25 07:11 Nucleated RBC % (auto) 0 % 05/21/25 07:11 Nucleated RBCs # 0.0 /100WBC 05/21/25 07:11 Sodium 139 mmol/L (136-145) 05/21/25 07:11 Potassium 4.2 mmol/L (3.5-5.1) 05/21/25 07:11 Chloride 96 mmol/L (98-107) L 05/21/25 07:11 Carbon Dioxide 26 mmol/L (22-29) 05/21/25 07:11 Anion Gap 21.2 (5-19) H 05/21/25 07:11 BUN 12 mg/dL (8-23) 05/21/25 07:11 Creatinine 0.8 mg/dL (0.5-0.9) 05/21/25 07:11 GFR Calculation Not Reportable 05/21/25 07:11 Glucose 211 mg/dL (65-115) H 05/21/25 07:11 Calculated Osmolality 294 mOsm/kg (285-295) 05/21/25 07:11 Calcium 9.7 mg/dL (8.5-10.5) 05/21/25 07:11 Total Bilirubin 0.5 mg/dL (0.15-1.2) 05/21/25 07:11 AST 15 U/L (0-32) 05/21/25 07:11 ALT < 5 U/L (0-33) 05/21/25 07:11 Alkaline Phosphatase 78 U/L (35-105) 05/21/25 07:11 Total Protein 8.1 g/dL (6.6-8.7) 05/21/25 07:11 Albumin 4.4 g/dL (3.5-5.2) 05/21/25 07:11 Globulin 3.7 g/dL (1.3-4.6) 05/21/25 07:11 Lipase 45 U/L (13-60) 05/21/25 07:11 Urine Color Yellow (Yellow) 05/21/25 07:51 Urine Appearance Clear (CLEAR) 05/21/25 07:51 Urine pH 5.0 (5-7) 05/21/25 07:51 Ur Specific [place] 1.033 (1.005-1.030) H 05/21/25 07:51 Urine Protein 3+ (Negative) A 05/21/25 07:51 Urine Glucose (UA) 3+ (Normal) H 05/21/25 07:51 Urine Ketones 2+ (Negative) H 05/21/25 07:51 Urine Blood 1+ (Negative) A 05/21/25 07:51 Urine Nitrate Negative (Negative) 05/21/25 07:51 Urine Bilirubin Negative (Negative) 05/21/25 07:51 Urine Urobilinogen 0.2 mg/dL (Negative) 05/21/25 07:51 Ur Leukocyte Esterase Negative (Negative) 05/21/25 07:51 Urine RBC 0-2 /hpf (0-2) 05/21/25 07:51 Urine WBC 0-5 /hpf (0-5) 05/21/25 07:51 Ur Squamous Epith Cells 0-5 /hpf (0-5) 05/21/25 07:51 Amorphous Sediment Not Reportable 05/21/25 07:51 Urine Bacteria None seen /hpf (NONE) 05/21/25 07:51 Hyaline Casts 9.91 /lpf 05/21/25 07:51 All radiology interpretation(s) finalized by discharge Discharge Plan Discharge Patient Disposition: Admitted As Inpatient Clinical Impression: Cholecystitis, T2DM (type 2 diabetes mellitus), Benign hypertension, Aortic valve stenosis Condition: Stable Coding Level of Care Code ED Addiction Social Worker for Marisol Do
[2025-05-21 07:38] LABS: Alanine Aminotransferase < 5 U/L (0-33); Albumin Level 4.4 g/dL (3.5-5.2); Alkaline Phosphatase 78 U/L (35-105); Anion Gap 21.2 (5-19); Aspartate Amino Transferase 15 U/L (0-32); Blood Urea Nitrogen 12 mg/dL (8-23); Calcium 9.7 mg/dL (8.5-10.5); Carbon Dioxide 26 mmol/L (22-29); Chloride 96 mmol/L (98-107); Creatinine Clr Calc Pharmacy 64.7573; Globulin 3.7 g/dL (1.3-4.6); Glucose 211 mg/dL (65-115); Lipase 45 U/L (13-60); Osmolality Calculated 294 mOsm/kg (285-295); Potassium 4.2 mmol/L (3.5-5.1); Sodium 139 mmol/L (136-145); Total Protein 8.1 g/dL (6.6-8.7)
--- NOTE | 2025-05-21 07:51 | US_ITS ---
WS: [id number] RIGHT UPPER QUADRANT ULTRASOUND HISTORY: Right upper quadrant abdominal pain COMPARISON: 05/19/2025 Liver: 14.9 cm in length. Normal size liver and echogenicity. No bile duct dilatation or mass. Portal Vein: Normal hepatopetal flow with monophasic waveform. Gallbladder: Gallbladder is mildly hydropic measuring approximately 5 cm in transverse diameter. Stones and sludge within the gallbladder lumen. The amount of sludge has increased. No pericholecystic fluid. The gallbladder wall does not appear to be thickened. CBD: 0.53 cm Pancreas: Normal size and echogenicity. Right kidney: 10.8 cm in length. Normal size kidney with no obstruction. Cortical cyst mid to lower kidney 1.3 x 1.0 x 1.5 cm. Aorta and IVC: Unremarkable abdominal aorta and IVC. No ascites. US/US gall bladder [id number] IMPRESSION: 1. Gallbladder hydrops with stones and sludge. Increase in amount of sludge si nce 05/19/2025. There is no pericholecystic fluid. No significant gallbladder wa ll thickening. Findings concerning for acute cholecystitis. 2. Normal common bile duct.
--- NOTE | 2025-05-21 07:55 | PC.NURSE ---
discussed antibiotic order without blood culture order with Dr. Tatum; antibiotic delayed d/t needing blood cultures obtained
[2025-05-21 07:57] LABS: Glucose Urine UA 3+ (Normal); Nitrate Urine Negative (Negative)
[2025-05-21 08:00] LABS: Add Urine Microscopic? YES
[2025-05-21 08:22] LABS: Specific Gravity, Urine 1.033 (1.005-1.030); UA Slide Review UA Slide Review Perf
[2025-05-21] MEDS: piperacillin-tazobactam 3.375 GM in sodium chloride 0.9% (plus) 50 ML IV (09:33)
--- NOTE | 2025-05-21 10:03 | PM.CONSULT ---
Providers/Reason For Consult Consulting Physician/Specialty*: Dr. George general surgery Reason for Consult*: Cholecystitis Primary Care Provider: Bola Carpenter MD History of Present Illness History of Present Illness Lucinda Huynh is a 70 year old female who presents with early acute cholecystitis. Only abdominal surgery is a tubal ligation. CBD 5 mm. LFTs within normal limits. Tender right upper quadrant. Medications/Allergies Home Medications ?Medication ?Instructions ?Recorded ?Confirmed ?Last Taken ?Type citalopram 20 mg tablet (Celexa) 20 mg PO DAILY 03/20/20 05/21/25 05/20/25 History empagliflozin 10 mg tablet 10 mg PO DAILY 03/20/20 05/21/25 05/20/25 History (Jardiance) pravastatin 40 mg tablet 40 mg PO DAILY 03/20/20 05/21/25 05/20/25 History tramadol 50 mg tablet 50 mg PO BID PRN Pain 03/20/20 05/21/25 Unknown History trazodone 100 mg tablet 100 mg PO BEDTIME 03/20/20 05/21/25 05/20/25 History metoprolol tartrate 25 mg tablet 12.5 mg (1/2 x 25 mg) PO BID 30 05/15/24 05/21/25 05/20/25 Rx days #30 tabs albuterol sulfate 90 mcg/actuation 1 inh inhalation QID 07/21/24 05/21/25 05/20/25 History aerosol inhaler omeprazole 20 mg capsule,delayed 20 mg PO DAILY 07/21/24 05/21/25 05/20/25 History release amlodipine 10 mg tablet 10 mg PO QAM 05/19/25 05/21/25 05/20/25 History calcium carbonate 500 mg PO TID 05/19/25 05/21/25 05/20/25 History guaifenesin 1,200 mg tablet, 1,200 mg PO BID 05/19/25 05/21/25 05/20/25 History extended release 12 hr (Mucinex) hydrocodone 5 mg-acetaminophen 325 1 tab PO Q6H PRN pain #20 tabs 05/19/25 05/21/25 05/20/25 Rx mg tablet losartan 100 mg tablet 100 mg PO QPM 05/19/25 05/21/25 05/20/25 History metformin 500 mg tablet,extended 1,000 mg PO BID 05/19/25 05/21/25 05/20/25 History release 24 hr ondansetron 4 mg disintegrating 4 mg PO Q8H PRN nausea and 05/19/25 05/21/25 Unknown Rx tablet vomiting #10 tabs Allergies Allergy/AdvReac Type Severity Reaction Status Date / Time No Known Allergies Allergy Verified 05/19/25 12:37 PFSH Acute PFSH: Social History Smoking and tobacco/nicotine status: former use of tobacco/nicotine Alcohol intake: never Substance/Drug Use: never Vitals/I&O/Wt Last Vital Signs Temp 98.2 F 05/21/25 07:12 Pulse 73 05/21/25 07:12 Resp 18 05/21/25 07:12 BP 179/73 05/21/25 07:16 Pulse Ox 93 05/21/25 07:12 O2 Del Method Room Air 05/21/25 07:12 Weight last 48 hrs Weight 190 lb Physical Exam Narrative: Chest: Unlabored breathing room air. No lymphadenopathy. Heart: Regular rate and rhythm. Abdomen: Soft, tender right upper quadrant, nondistended. No masses or lymphadenopathy. Data 05/21/25 07:11 05/21/25 07:11 Micro: Microbiology 05/21/25 09:10 Blood Culture - Preliminary Blood SPECIMEN COLLECTED 05/21/25 09:05 Blood Culture - Preliminary Blood SPECIMEN COLLECTED A&P Assessment and plan 1. Cholecystitis: Plan: 70-year-old female who presents with cholecystitis. Discussed risk and benefits and patient agreed to proceed with laparoscopic cholecystectomy possible open. Patient understands that the risks of the surgery include postoperative infection, bleeding, bile leak, incisional hernia, and in very rare instances injuries to the bowel, common bile duct, portal vein, and liver failure. PDMP PDMP Reviewed: Not Reviewed Coding Level of Care Code 41634 Diagnoses Cholecystitis K81.9
[2025-05-21] MEDS: ceFAZolin 2,000 mg SDV 2000 MG IVP (10:45)
[2025-05-21] MEDS: ondansetron 2 mg/ML SDV 2 mL 4 MG IVP (11:00)
[2025-05-21] MEDS: morphine 4 mg/mL SDV 1 mL IVP (11:00)
--- NOTE | 2025-05-21 11:34 | ANES.PREANE2 ---
Pre-Anesthetic Assessment Height/Weight: Height 1.57 m Weight 86.183 kg Temp Pulse Resp BP Pulse Ox O2 Del Method 98.0 F 92 18 167/82 95 Room Air 05/21/25 11:22 05/21/25 11:22 05/21/25 11:22 05/21/25 11:22 05/21/25 11:22 05/21/25 11:22 Operation Date: 05/21/25 12:00 Proposed Procedures p Laparoscopic Cholecystectomy(Not Applicable) - Bryan George MD Familial anesthetic complications: None Was Beta Sintia taken within 24 hours: Yes Was Clonidine taken within 24 hours: N/A Last intake: > 8 hrs Social No alcohol and No tobacco Exam alert, oriented x 3, clear to auscultation bilaterally and regular rate & rhythm Airway Dentition: other (none) Pulmonary Chronic Obstructive Pulmonary Disease CV/HEM Arrythmia and Hypertension AV stenosis echo CONCLUSIONS Normal left ventricular size and systolic function, EF 65%.mild left ventricular hypertrophy. No regional wall motion abnormalities. Grade I/IV diastolic dysfunction (abnormal relaxation filling pattern), normal to mildly elevated filling pressures. Moderate aortic valve stenosis, mean gradient 11.9 mmHg, KATIE 1.1 cm squared. Peak velocity of 2.6 m/s with a peak gradient of 27 and a mean gradient of 12 mmHg Moderate aortic valve calcification. Trace aortic valve regurgitation. Mild mitral annular calcification. Mildly increased left atrial size. There is no pericardial effusion. There are no intracardiac masses. Compared to the study from 05/05/2024, there may not be a significant change GI Gastroesophageal Reflux Disease Metabolic Diabetes Mellitus Anesthetic Plan ASA status: 3 Anesthesia: General Risk of > 500 ml blood loss (7ml/kg in children): No Medications/Allergies Home Medications ?Medication ?Instructions ?Recorded ?Confirmed ?Last Taken ?Type citalopram 20 mg tablet (Celexa) 20 mg PO DAILY 03/20/20 05/21/25 05/20/25 History empagliflozin 10 mg tablet 10 mg PO DAILY 03/20/20 05/21/25 05/20/25 History (Jardiance) pravastatin 40 mg tablet 40 mg PO DAILY 03/20/20 05/21/25 05/20/25 History tramadol 50 mg tablet 50 mg PO BID PRN Pain 03/20/20 05/21/25 Unknown History trazodone 100 mg tablet 100 mg PO BEDTIME 03/20/20 05/21/25 05/20/25 History metoprolol tartrate 25 mg tablet 12.5 mg (1/2 x 25 mg) PO BID 30 05/15/24 05/21/25 05/20/25 Rx days #30 tabs albuterol sulfate 90 mcg/actuation 1 inh inhalation QID 07/21/24 05/21/25 05/20/25 History aerosol inhaler omeprazole 20 mg capsule,delayed 20 mg PO DAILY 07/21/24 05/21/25 05/20/25 History release amlodipine 10 mg tablet 10 mg PO QAM 05/19/25 05/21/25 05/20/25 History calcium carbonate 500 mg PO TID 05/19/25 05/21/25 05/20/25 History guaifenesin 1,200 mg tablet, 1,200 mg PO BID 05/19/25 05/21/25 05/20/25 History extended release 12 hr (Mucinex) hydrocodone 5 mg-acetaminophen 325 1 tab PO Q6H PRN pain #20 tabs 05/19/25 05/21/25 05/20/25 Rx mg tablet losartan 100 mg tablet 100 mg PO QPM 05/19/25 05/21/25 05/20/25 History metformin 500 mg tablet,extended 1,000 mg PO BID 05/19/25 05/21/25 05/20/25 History release 24 hr ondansetron 4 mg disintegrating 4 mg PO Q8H PRN nausea and 05/19/25 05/21/25 Unknown Rx tablet vomiting #10 tabs Allergies Allergy/AdvReac Type Severity Reaction Status Date / Time No Known Allergies Allergy Verified 05/19/25 12:37 Current Medications Generic Name Dose Route Start Last Admin Trade Name Freq PRN Reason Stop Dose Admin Morphine Sulfate 4 mg 05/21/25 10:44 05/21/25 11:00 Morphine 4 Mg/Ml Sdv 1 Ml IVP 4 mg On Hold: 05/21/25 11:16 Q4H PRN Administration Comment: Order held by Process SEVERE PAIN Transfer Ondansetron HCl 4 mg 05/21/25 10:44 05/21/25 11:00 Ondansetron 2 Mg/Ml Sdv 2 Ml IVP 4 mg On Hold: 05/21/25 11:16 Q6H PRN Administration Comment: Order held by Process NAUSEA AND VOMITING Transfer [facility] Anesthesia Social History Smoking and tobacco/nicotine status: former use of tobacco/nicotine Alcohol intake: never Substance/Drug Use: never Data Anesthesia 05/21/25 07:11 05/21/25 07:11 Short CBC 05/21/25 Range/Units 07:11 WBC 14.57 H (3.29-11.43) 10^3/uL Hgb 15.20 (11.27-16.99) g/dL Hct 46.3 (36-47) % MCV 93.0 (85-98) fl Plt Count 283 (157-399) 10^3/cmm Neut % (Auto) 87.7 % Neut # (Auto) 12.78 H (1.8-7.7) 10^3/uL BMP 05/21/25 07:11 Sodium 139 Potassium 4.2 Chloride 96 L Carbon Dioxide 26 BUN 12 Creatinine 0.8 Glucose 211 H Calcium 9.7 Liver Function 05/21/25 Range/Units 07:11 Total Bilirubin 0.5 (0.15-1.2) mg/dL AST 15 (0-32) U/L ALT < 5 (0-33) U/L Alkaline Phosphatase 78 (35-105) U/L Albumin 4.4 (3.5-5.2) g/dL Urine 05/21/25 Range/Units 07:51 Urine Color Yellow (Yellow) Urine Appearance Clear (CLEAR) Urine pH 5.0 (5-7) Ur Specific [place] 1.033 H (1.005-1.030) Urine Protein 3+ A (Negative) Urine Glucose (UA) 3+ H (Normal) Urine Ketones 2+ H (Negative) Urine Nitrate Negative (Negative) Urine Bilirubin Negative (Negative) Ur Leukocyte Esterase Negative (Negative) Urine RBC 0-2 (0-2) /hpf Urine WBC 0-5 (0-5) /hpf Microbiology 05/21/25 09:10 Blood Culture - Preliminary Blood SPECIMEN COLLECTED 05/21/25 09:05 Blood Culture - Preliminary Blood SPECIMEN COLLECTED Cardiac Studies: Echocardiogram 05/10/25 Echocardiogram Limited Views 05/05/24 Cardiac Event Monitor 03/19/24
[2025-05-21] MEDS: lidocaine-epi 1% 20 mL INJ INJECTION (13:20)
--- NOTE | 2025-05-21 13:31 | P.OP_ITS ---
Operative Report Date of procedure: May 21, 2025 Pre-op diagnosis: Acute cholecystitis Post-op diagnosis: Chronic cholecystitis Post-op findings: Changes consistent with chronic cholecystitis. Significant inflammatory changes in the right upper quadrant. Thick inflammatory rind surrounding gallbladder. Unable to obtain a critical view of safety. Proceeded with subtotal cholecyste ctomy. Removed all stones in the gallbladder and cystic duct including a large stone at the infundibulum. Fired a staple load at the infundibulum. Procedure done: Laparoscopic cholecystectomy Implants: N/A Specimens removed/disposition: Gallbladder sent to pathology including stones Pathology: Gallbladder sent to pathology including stones Surgeon: Bryan George MD Vice President Supply Chain: N/A Anesthesia: General Estimated blood loss (mL): 20 Complications: N/A Findings: Changes consistent with chronic cholecystitis. Significant inflammatory changes in the right upper quadrant. Thick inflammatory rind surrounding gallbladder. Unable to obtain a critical view of safety. Proceeded with subtotal cholecystectomy. Removed all stones in the gallbladder and cystic duct including a large stone at the infundibulum. Fired a staple load at the infundibulum. Condition: stable Disposition: observation Brief History: 70-year-old female who presented with acute cholecystitis. Discussed risk and benefits and patient agreed to proceed with laparoscopic cholecystectomy possible open. Procedure: I discussed the risks and benefits of laparoscopic cholecystectomy possible open, and obtained consent prior to proceeding to the operating room. SCDs were utilized. Prophylactic antibiotics were administered. General anesthesia was induced. The patient was placed supine, and was prepped and draped in the usual sterile fashion. Insufflation to 15mmHg was achieved using a Veress needle at Stephens's point. A 12mm optiview trocar was placed at the umbilicus under direct visualization. The left upper quadrant was inspected, and no injuries were noted. Two 5mm ports were placed in the right upper quadrant, and a 12mm working port was placed in the epigastrium. There were significant inflammatory changes in the right upper quadrant. Multiple adhesions between the gallbladder, the stomach, and the duodenum. The adhesions were taken down by a complication of hook electrocautery and blunt dissection. The gallbladder was then retracted cephalad through the lateral RUQ port, and the infundibulum grabbed through the medial RUQ port and retracted laterally. The gallbladder was inflammed and had a thick inflammatory rind consistent chronic cholecystitis. I proceeded to score the peritoneum over the medial aspect of the gallbladder using a laparoscopic hook with electrocautery. Then the infundibulum was retracted medially in order to score the peritoneum over the lateral aspect of the galbladder. The inflammatory changes on the gallbladder wall made it difficult to dissect off the cystic plate. I attempted to dissect out the cystic artery and cystic duct using a combination of energy and blunt dissection with the [place] and a Kittner dissector, however, the gallbladder wall started tearing making dissection extremely difficult. I was unable to obtain the critical view of safety. At this point, the safest option was to proceed with a subtotal cholecystectomy. I dissected the infundibulum off the cystic plate. I then opened the gallbladder and emptied all stones, including a large stone at the infundibulum measuring about 2cm in diameter. I palpated the cystic duct and the infundibulum and confirmed there remained no stones. I then fired a laparoscopic staple load at the infindibulum. I proceeded to dissect off the body and fundus of the gallbladder off the cystic plate. I removed all stones and gallbladder using two Endocatch bags. I irrigated using 3L of NS and confirmed adequate hemostasis and the absence of any bile leaks. The staple load at the infundibulum was intact. I inspected the duodenum and stomach as well as hepatic flexure and they were all intact. Abdomen was desufflated. The umbilical port was closed using 0 vicryl on a UR6 needle. Skin was closed using 4-0 monocryl and surgical glue. The patient woke up from anesthesia and transferred to PACU without any complications.
--- NOTE | 2025-05-21 13:48 | PM.MISC ---
Miscellaneous Note Note: Will plan for discharge on 05/22 for pain control. ok for diet.
[2025-05-21] MEDS: oxyCODONE 5 mg IR Tab/Cap PO ×2 (17:31→23:21)
--- NOTE | 2025-05-21 17:43 | PM.HP ---
Providers/Chief Complaint Admitting Physician: Bryan George MD Primary Care Provider: Bola Carpenter MD Chief Complaint: abdomen pain History of Present Illness Lucinda Huynh is a 70 year old female with history of diabetes and hypertension states she has had remote history of gallbladder attack 25 years ago and was told she had lots of stones in her gallbladder but medicines worked well and she did not have insurance at that time so did not undergo cholecystectomy. 2 days prior to admission she had a gallbladder attack and then yesterday had a severe attack. She was supposed to follow-up outpatient with surgery but did not have time for that before gallbladder attack recurred. She underwent cholecystectomy earlier with Dr. George and is doing well now eating dinner. It looks like a regular dinner because she has juice and cake. Review of Systems Narrative: no dysuria hematuria no history of malignancy Medications/Allergies Home Medications ?Medication ?Instructions ?Recorded ?Confirmed ?Last Taken ?Type citalopram 20 mg tablet (Celexa) 20 mg PO DAILY 03/20/20 05/21/25 05/20/25 History empagliflozin 10 mg tablet 10 mg PO DAILY 03/20/20 05/21/25 05/20/25 History (Jardiance) pravastatin 40 mg tablet 40 mg PO DAILY 03/20/20 05/21/25 05/20/25 History tramadol 50 mg tablet 50 mg PO BID PRN Pain 03/20/20 05/21/25 Unknown History trazodone 100 mg tablet 100 mg PO BEDTIME 03/20/20 05/21/25 05/20/25 History metoprolol tartrate 25 mg tablet 12.5 mg (1/2 x 25 mg) PO BID 30 05/15/24 05/21/25 05/20/25 Rx days #30 tabs albuterol sulfate 90 mcg/actuation 1 inh inhalation QID 07/21/24 05/21/25 05/20/25 History aerosol inhaler omeprazole 20 mg capsule,delayed 20 mg PO DAILY 07/21/24 05/21/25 05/20/25 History release amlodipine 10 mg tablet 10 mg PO QAM 05/19/25 05/21/25 05/20/25 History calcium carbonate 500 mg PO TID 05/19/25 05/21/25 05/20/25 History guaifenesin 1,200 mg tablet, 1,200 mg PO BID 05/19/25 05/21/25 05/20/25 History extended release 12 hr (Mucinex) hydrocodone 5 mg-acetaminophen 325 1 tab PO Q6H PRN pain #20 tabs 05/19/25 05/21/25 05/20/25 Rx mg tablet losartan 100 mg tablet 100 mg PO QPM 05/19/25 05/21/25 05/20/25 History metformin 500 mg tablet,extended 1,000 mg PO BID 05/19/25 05/21/25 05/20/25 History release 24 hr ondansetron 4 mg disintegrating 4 mg PO Q8H PRN nausea and 05/19/25 05/21/25 Unknown Rx tablet vomiting #10 tabs Allergies Allergy/AdvReac Type Severity Reaction Status Date / Time No Known Allergies Allergy Verified 05/19/25 12:37 PFSH Acute PFSH: Social History (Updated 05/21/25 @ 17:47 by Tyler Romero MD) Smoking and tobacco/nicotine status: former use of tobacco/nicotine Alcohol intake: never Substance/Drug Use: current Substance/Drug use frequency: few times a week Substance/Drug use type: Marijuana Other substance/drug use details: Gummies and occasional smokes a bowl Additional social history: 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 [employer] accompanied by her son David patient tells me she wants full code no prolonged life support on machines 05/21/2025 with Tyler Romero MD Vitals/I&O/Wt Last Vital Signs Temp 99.3 F 05/21/25 17:21 Pulse 86 05/21/25 17:21 Resp 20 H 05/21/25 17:31 BP 141/80 05/21/25 17:29 Pulse Ox 94 05/21/25 17:21 O2 Del Method Nasal Cannula 05/21/25 17:21 O2 Flow Rate 2 05/21/25 15:45 FiO2 3 05/21/25 16:01 05/21/25 05/21/25 05/21/25 06:59 14:59 22:59 Intake Total 50 / 50 Output Total 10 / 10 Balance 40 / 40 Weight last 48 hrs Weight 86.183 kg Physical Exam Narrative: General well-developed well-nourished female in no acute cardiopulmonary stress CV regular rate and rhythm Lungs clear to auscultation bilaterally Abdomen positive bowel tones soft minimally tender no rebound Data 05/21/25 07:11 05/21/25 07:11 Micro: Microbiology 05/21/25 09:10 Blood Culture - Preliminary Blood SPECIMEN COLLECTED 05/21/25 09:05 Blood Culture - Preliminary Blood SPECIMEN COLLECTED A&P Assessment and plan 1. Cholecystitis: Status post cholecystectomy and doing well 2. T2DM (type 2 diabetes mellitus): I change the diet to diabetic diet started sliding scale insulin with low scale 3. Benign hypertension: Resume home blood pressure meds. She shows no evidence of sepsis or hypotension PDMP PDMP Reviewed: Not Reviewed Attestations Medical Necessity Statement*: Patient remained in the hospital overnight anticipate discharge tomorrow Coding Level of Care Code Acute Code for [facility] Diagnoses Cholecystitis K81.9 T2DM (type 2 diabetes mellitus) E11.9 Benign hypertension I10
[2025-05-22] VITALS (9 sets, daily range): BP systolic 130–151; BP diastolic 51–73; PULSE 62–74; RESP 16–19; TEMP 36.3–36.9; O2SAT 87–97; BMI 35.3
[2025-05-22] MEDS: oxyCODONE 5 mg IR Tab/Cap PO ×2 (09:15→15:56)
--- NOTE | 2025-05-22 11:47 | P.PN_ITS ---
Subjective 2 Subjective: Pain under control Tolerating diet On O2 Abodmen benign Vitals/I&O/Wt Last Vital Signs Temp 98.4 F 05/22/25 11:30 Pulse 62 05/22/25 11:30 Resp 18 05/22/25 11:30 BP 151/51 05/22/25 11:30 Pulse Ox 97 05/22/25 11:30 O2 Del Method Nasal Cannula 05/22/25 07:57 O2 Flow Rate 2 05/22/25 08:33 FiO2 3 05/21/25 16:01 05/21/25 05/22/25 05/22/25 22:59 06:59 14:59 Intake Total 600 / 650 360 / 1010 360 / 360 Balance 600 / 640 360 / 1000 360 / 360 Weight last 48 hrs Weight 190 lb Weight 193 lb 4 oz Weight 190 lb Weight 190 lb Physical Exam 2 Narrative: rrr 2L NC Abdomen soft, mildly TTP, non distended. Incision c/d/i Data 05/21/25 07:11 05/21/25 07:11 Micro: Microbiology 05/21/25 09:10 Blood Culture - Preliminary Blood NEGATIVE TO DATE 05/21/25 09:05 Blood Culture - Preliminary Blood NEGATIVE TO DATE A&P Assessment and plan 1. Aortic valve stenosis: 2. Cholecystitis: Plan: 70yo female s/p lap bjorn. Doing well. Cleared for discharge pending hospitalist recs. Hospitalist recs dc on home O2. PDMP PDMP Reviewed: Last Reviewed 05/22/25 12:45 EDT by Bryan Goerge MD Attestations 2 Medical Necessity Statement*: O2, IV pain meds, aortic stenosis Coding Level of Care Code 95947 Diagnoses Aortic valve stenosis I35.0 Cholecystitis K81.9
--- NOTE | 2025-05-22 11:48 | PM.DCS ---
Discharge Providers Date of Admission: 05/21/25 16:04 Date of Discharge: May 22, 2025 Attending Provider at Admission: Bryan George MD Attending Provider at Discharge: Bryan George MD Primary Care Provider: Bola Carpenter MD Diagnoses at Discharge Discharge Diagnosis 1. Cholecystitis: 2. Type 2 diabetes mellitus without complication, without long-term current use of insulin: 3. Benign hypertension: Reason for Visit Reason for Visit: abdomen pain Hospital Course Hospital Course 70yo female with multiple medical problems admitted for cholecystitis. Difficult cholecystectomy. Patient doing well postoperatively. Hospitalist on board for medical management. Recommending discharge on home O2. Follow up in 2 weeks in my clinic. Physical Exam Narrative: rrr unlabored breathing 2L NC Abdomen soft, mildly ttp, non distended, incisions c/d/i Discharge Data Studies Completed and Pending Completed Studies During Hospitalization Category Date Time Status US gall bladder 90726 Stat Ultrasound 05/21/25 07:51 Completed Pending at discharge Category Date Time Status Blood Culture Stat Lab 05/21/25 09:10 Results Pathology: Surgical [PTH] Routine Pth 05/21/25 13:37 Ordered Radiology Impressions Gallbladder Ultrasound 05/21/25 07:51 IMPRESSION: 1. Gallbladder hydrops with stones and sludge. Increase in amount of sludge since 05/19/2025. There is no pericholecystic fluid. No significant gallbladder wall thickening. Findings concerning for acute cholecystitis. 2. Normal common bile duct. Laboratory Results WBC 14.57 10^3/uL (3.29-11.43) H 05/21/25 07:11 RBC 4.98 10^6/uL (3.85-5.65) 05/21/25 07:11 Hgb 15.20 g/dL (11.27-16.99) 05/21/25 07:11 Hct 46.3 % (36-47) 05/21/25 07:11 MCV 93.0 fl (85-98) 05/21/25 07:11 MCH 30.5 pg (27-33) 05/21/25 07:11 MCHC 32.8 g/dL (30-55) 05/21/25 07:11 RDW 13.1 % (12.1-15.1) 05/21/25 07:11 Plt Count 283 10^3/cmm (157-399) 05/21/25 07:11 MPV 9.5 fL (7.4-10.4) 05/21/25 07:11 Neut % (Auto) 87.7 % 05/21/25 07:11 Lymph % (Auto) 8.0 % 05/21/25 07:11 Millard % (Auto) 3.4 % 05/21/25 07:11 Eos % (Auto) 0.1 % 05/21/25 07:11 Baso % (Auto) 0.5 % 05/21/25 07:11 Neut # (Auto) 12.78 10^3/uL (1.8-7.7) H 05/21/25 07:11 Lymph # (Auto) 1.2 10^3/uL (0.8-4.8) 05/21/25 07:11 Millard # (Auto) 0.5 10^3/uL (0.2-0.9) 05/21/25 07:11 Eos # (Auto) 0.0 10^3/uL (0.0-0.8) 05/21/25 07:11 Baso # (Auto) 0.1 10^3/uL (0.0-0.1) 05/21/25 07:11 Nucleated RBC % (auto) 0 % 05/21/25 07:11 Nucleated RBCs # 0.0 /100WBC 05/21/25 07:11 Sodium 139 mmol/L (136-145) 05/21/25 07:11 Potassium 4.2 mmol/L (3.5-5.1) 05/21/25 07:11 Chloride 96 mmol/L (98-107) L 05/21/25 07:11 Carbon Dioxide 26 mmol/L (22-29) 05/21/25 07:11 Anion Gap 21.2 (5-19) H 05/21/25 07:11 BUN 12 mg/dL (8-23) 05/21/25 07:11 Creatinine 0.8 mg/dL (0.5-0.9) 05/21/25 07:11 GFR Calculation Not Reportable 05/21/25 07:11 Glucose 211 mg/dL (65-115) H 05/21/25 07:11 POC Glucose 151 mg/dL (70-110) H 05/22/25 10:18 Calculated Osmolality 294 mOsm/kg (285-295) 05/21/25 07:11 Calcium 9.7 mg/dL (8.5-10.5) 05/21/25 07:11 Total Bilirubin 0.5 mg/dL (0.15-1.2) 05/21/25 07:11 AST 15 U/L (0-32) 05/21/25 07:11 ALT < 5 U/L (0-33) 05/21/25 07:11 Alkaline Phosphatase 78 U/L (35-105) 05/21/25 07:11 Total Protein 8.1 g/dL (6.6-8.7) 05/21/25 07:11 Albumin 4.4 g/dL (3.5-5.2) 05/21/25 07:11 Globulin 3.7 g/dL (1.3-4.6) 05/21/25 07:11 Lipase 45 U/L (13-60) 05/21/25 07:11 Urine Color Yellow (Yellow) 05/21/25 07:51 Urine Appearance Clear (CLEAR) 05/21/25 07:51 Urine pH 5.0 (5-7) 05/21/25 07:51 Ur Specific [place] 1.033 (1.005-1.030) H 05/21/25 07:51 Urine Protein 3+ (Negative) A 05/21/25 07:51 Urine Glucose (UA) 3+ (Normal) H 05/21/25 07:51 Urine Ketones 2+ (Negative) H 05/21/25 07:51 Urine Blood 1+ (Negative) A 05/21/25 07:51 Urine Nitrate Negative (Negative) 05/21/25 07:51 Urine Bilirubin Negative (Negative) 05/21/25 07:51 Urine Urobilinogen 0.2 mg/dL (Negative) 05/21/25 07:51 Ur Leukocyte Esterase Negative (Negative) 05/21/25 07:51 Urine RBC 0-2 /hpf (0-2) 05/21/25 07:51 Urine WBC 0-5 /hpf (0-5) 05/21/25 07:51 Ur Squamous Epith Cells 0-5 /hpf (0-5) 05/21/25 07:51 Amorphous Sediment Not Reportable 05/21/25 07:51 Urine Bacteria None seen /hpf (NONE) 05/21/25 07:51 Hyaline Casts 9.91 /lpf 05/21/25 07:51 Vitals Last Vital Signs Temp 98.4 F 05/22/25 11:30 Pulse 62 05/22/25 11:30 Resp 18 05/22/25 11:30 BP 151/51 05/22/25 11:30 Pulse Ox 97 05/22/25 11:30 O2 Del Method Nasal Cannula 05/22/25 07:57 O2 Flow Rate 2 05/22/25 08:33 FiO2 3 05/21/25 16:01 Discharge Plan Discharge Patient Disposition: Home Condition: Stable Prescriptions: New oxycodone 5 mg tablet 5 mg PO Q6H PRN (Reason: pain) 5 Days Qty: 10 0RF Continued trazodone 100 mg tablet 100 mg PO BEDTIME citalopram [Celexa] 20 mg tablet 20 mg PO DAILY Jardiance 10 mg tablet 10 mg PO DAILY tramadol 50 mg tablet 50 mg PO BID PRN (Reason: Pain) pravastatin 40 mg tablet 40 mg PO DAILY albuterol sulfate 90 mcg/actuation HFA aerosol inhaler 1 inh inhalation QID omeprazole 20 mg capsule,delayed release(DR/EC) 20 mg PO DAILY metoprolol tartrate 25 mg tablet 12.5 mg PO BID 30 Days Qty: 30 5RF calcium carbonate 500 mg calcium (1,250 mg) Tablet 500 mg PO TID amlodipine 10 mg tablet 10 mg PO QAM metformin 500 mg tablet extended release 24 hr 1,000 mg PO BID guaifenesin [Mucinex] 1,200 mg Tablet Extended Release 12hr 1,200 mg PO BID losartan 100 mg tablet 100 mg PO QPM hydrocodone-acetaminophen 5-325 mg tablet 1 tab PO Q6H PRN (Reason: pain) Qty: 20 0RF ondansetron 4 mg tablet,disintegrating 4 mg PO Q8H PRN (Reason: nausea and vomiting) Qty: 10 0RF Other Ambulatory Orders: DME: Oxygen (Order) Location: None Selected Ordered By: Tyler Romero CV abd aorta aneury scrn [id number] (Routine) Timeframe: 2 Weeks Location: [facility] Ordered By: Tyler Romero Referrals: Bryan George MD [Physician, General Surgery] - 2 weeks Bola Carpenter MD [Primary Care Provider, Family Practice] Discharge Diet: Usual diet Discharge Activity: Limit activity as instructed Patient Instructions: Opioid Safety, Patient Portal & [place] Instructions Activity Restrictions/Additional Instructions: 1. Ok to shower. No bathtubs for 2 weeks. 2. No lifting greater than 10lbs for 6 weeks. 3. OK to add over the counter ibuprofen and tylenol for pain control. Take oxycodone for breakthrough pain. 4. Do not drive if taking narcotics. 5. Call the office if you have any concerns. 1300-calorie diabetic low carbohydrate weight loss diet. Use your oxygen 2 L/min both during the day by nasal cannula and also bleeding with your CPAP at night Follow-up for outpatient ultrasound of your aorta due to abdominal bruit. This may be referred from your aortic valve murmur but I am not for certain Discharge Attestations Time Spent in Discharge Care*: greater than 30 min Quality Metrics Clinical Quality Measures [ No reported AMI, CVA or VTE this stay] Coding Level of Care Code Acute Code for g [facility]wd Diagnoses Cholecystitis K81.9 Type 2 diabetes mellitus without complication, without long-term current use of insulin E11.9 Diabetes mellitus complication status: without complication Diabetes mellitus watermelon inspector insulin use: without watermelon inspector use Benign hypertension I10
--- NOTE | 2025-05-22 12:57 | P.PN_ITS ---
Subjective 2 Subjective: 70-year-old female did well ov ernight but states she cannot seem to get off the oxygen. She admits that she has been on oxygen in the past having quit smoking approximately 13 years ago but smoked heavily for 40 years. She states show on oxygen early but then decided that she did not need it and stopped it. She states that checking options at home she is never over 87% here she has not been over 87%. She has CPAP and air sense 10 and she used to bleed oxygen into that. Patient has had a known aortic murmur but has not had her abdomen evaluated based on review of the radiology test that we have Vitals/I&O/Wt Last Vital Signs Temp 98.4 F 05/22/25 11:30 Pulse 62 05/22/25 11:30 Resp 18 05/22/25 11:30 BP 151/51 05/22/25 11:30 Pulse Ox 87 L 05/22/25 12:41 O2 Del Method Nasal Cannula 05/22/25 07:57 O2 Flow Rate 2 05/22/25 08:33 FiO2 3 05/21/25 16:01 05/21/25 05/22/25 05/22/25 22:59 06:59 14:59 Intake Total 600 / 650 360 / 1010 360 / 360 Balance 600 / 640 360 / 1000 360 / 360 Weight last 48 hrs Weight 86.183 kg Weight 87.657 kg Weight 86.183 kg Weight 86.183 kg Physical Exam 2 Narrative: General well-developed well-nourished female in no acute cardiopulmonary stress CV regular rate and rhythm with a 5/6 systolic ejection murmur best heard at the right upper sternal border but this may be radiated to the abdomen. Lungs clear to auscultation bilaterally Abdomen positive bowel tones soft minimally tender no rebound there is a loud abdominal bruit possibly radiated from the aorta but not for certain Data 05/21/25 07:11 05/21/25 07:11 Micro: Microbiology 05/21/25 09:10 Blood Culture - Preliminary Blood NEGATIVE TO DATE 05/21/25 09:05 Blood Culture - Preliminary Blood NEGATIVE TO DATE A&P Assessment and plan 1. Cholecystitis: Status post cholecystectomy and doing well. Discharged home on a 1300-calorie ADA weight loss diet 2. Type 2 diabetes mellitus without complication, without long-term current use of insulin: I change the diet to diabetic diet started sliding scale insulin with low scale 3. Benign hypertension: Resume home blood pressure meds. She shows no evidence of sepsis or hypotension 4. COPD (chronic obstructive pulmonary disease): Patient with hypoxemic disease and recommended for oxygen 2 L/min at night she will continue on CPAP she has tolerated oxygen here without evidence of CO2 narcosis clinically 5. Abdominal bruit: I have ordered an outpatient abdominal ultrasound to evaluate for possibility of abdominal aortic aneurysm 6. Aortic valve stenosis: PDMP PDMP Reviewed: Not Reviewed Attestations 2 Medical Necessity Statement*: Patient is ready for discharge Coding Level of Care Code 39792 Diagnoses Cholecystitis K81.9 Type 2 diabetes mellitus without complication, without long-term current use of insulin E11.9 Diabetes mellitus exterminator insulin use: without assisted use Diabetes mellitus complication status: without complication Benign hypertension I10 COPD (chronic obstructive pulmonary disease) J44.9 Abdominal bruit R09.89 Aortic valve stenosis I35.0 Time Spent (min) 35
== END 2025-05-22 16:25 | disposition home or self-care (01) ==
LOC: ER 10:31 → OPS 11:09 → MEDSURG 16:05
PROVIDERS: Admitting Provider Student in an Organized Health Care Education/Training Program; Emergency Provider Family Medicine; PCP Family Medicine; Visit Provider Student in an Organized Health Care Education/Training Program
PROC: 0FT44ZZ Resection of Gallbladder, Percutaneous Endoscopic Approach (ICD-10-PCS; CPT 47562; principal; 2025-05-21 12:00)
DX: K80.00 Calculus of gallbladder with acute cholecystitis without obstruction (principal); E11.9 Type 2 diabetes mellitus without complications; I10 Essential (primary) hypertension; Z79.84 Long term (current) use of oral hypoglycemic drugs; Z99.81 Dependence on supplemental oxygen; K21.9 Gastro-esophageal reflux disease without esophagitis; J44.9 Chronic obstructive pulmonary disease, unspecified; R09.89 Other specified symptoms and signs involving the circulatory and respiratory systems; I35.0 Nonrheumatic aortic (valve) stenosis; Z87.891 Personal history of nicotine dependence
CPT/HCPCS: 47562; 36415; 36416; 76705; 80053; 81001; 82962; 83690; 85025; 87040; 88304; 94760; 96365; 96372; 96375; 99285; A4216; G0378; J0690; J1100; J1171; J1650; J2270; J2405; J2543; J2704; J3010; J3490; J7030; J9999

== ENCOUNTER → 2025-06-07 14:03 | Outpatient (BNVA) | payer MEDICARE, OTHER, SELFPAY | PROVIDERS: PCP Family Medicine; Visit Provider Student in an Organized Health Care Education/Training Program | DX: Z98.890 Other specified postprocedural states (principal) | CPT/HCPCS: 99024 ==

== ENCOUNTER 2025-06-11 09:48 | Outpatient (CLI) | payer MEDICARE, OTHER, SELFPAY ==
--- NOTE | 2025-06-11 09:45 | USCV_ITS ---
Lucinda Huynh Age: 70 Gender: F : 1955 Exam Date: 06/11/2025 10:18 Ordering Phys: Tyler Romero MD Technologist: [facility] Exam Location[place] [facility] [place] Indication: abd murmur HISTORY: Diameter (cm) AP x Transverse x Length Velocity (cm/s) Waveform Prox Aorta: 2.00 x 2.20 x 94.90 Mid Aorta: 2.00 x 2.00 x 85.60 Distal Aorta: 1.50 x 1.40 x 145.10 Right Iliac Prox: 0.60 x 1.02 x 121.30 Left Iliac Prox: 0.61 x 0.87 x 111.10 Stent Prox Landing x x Aneurysmal Sac Max x x Lt Lat Sac Dim Rt Lat Sac Dim Stent Dist Landing x x Right Iliac Stent x x Left Iliac Stent x x Right Renal Art Left Renal Art FINDINGS: Comparison: none available. No evidence of abdominal aortic or bilateral iliac aneurysm. Ectatic abdominal aorta with evidence of atherosclerotic plaque noted. CONCLUSIONS No evidence of abdominal aortic aneurysm. Dr. Faby Apple DO (Electronically Signed) Final Date: 11 June 2025 10:49 S
== END 2025-06-11 09:49 | disposition home or self-care (01) ==
LOC: RAD 09:49
PROVIDERS: PCP Family Medicine; Visit Provider Internal Medicine
DX: I35.0 Nonrheumatic aortic (valve) stenosis (principal); R09.89 Other specified symptoms and signs involving the circulatory and respiratory systems
CPT/HCPCS: 76706

== ENCOUNTER → 2025-09-07 15:39 | Outpatient (BNVA) | payer MEDICARE, OTHER, SELFPAY | PROVIDERS: PCP Family Medicine; Visit Provider Internal Medicine Cardiovascular Disease | DX: E78.5 Hyperlipidemia, unspecified (principal); I10 Essential (primary) hypertension; I49.8 Other specified cardiac arrhythmias; I35.0 Nonrheumatic aortic (valve) stenosis; E11.9 Type 2 diabetes mellitus without complications; Z79.84 Long term (current) use of oral hypoglycemic drugs; R00.1 Bradycardia, unspecified; F12.90 Cannabis use, unspecified, uncomplicated; R06.09 Other forms of dyspnea | CPT/HCPCS: 99214 ==

== ENCOUNTER 2025-09-22 09:08 | Outpatient (CLI) | payer MEDICARE, OTHER, SELFPAY ==
--- NOTE | 2025-09-22 09:14 | MM_ITS ---
WS: [id number] DIAGNOSTIC BILATERAL DIGITAL BREAST TOMOSYNTHESIS MAMMOGRAPHY WITH CAD HISTORY: HX OF CANCER COMPARISON: 07/15/2024, 07/10/2023, 07/03/2022 TECHNIQUE: Bilateral craniocaudad, mediolateral oblique, and mediolateral views are submitted with tomosynthesis and SM. Computer aided detection utilized. Breast composition: The breasts are heterogeneously dense, which may obscure small masses. Postlumpectomy site in the upper outer quadrant of the LEFT breast is stable. Postradiation changes and fibrosis with scarring identified. Dystrophic calcifications at the scar site. The scar and surrounding fibrotic changes appear similar to prior studies dating back to 07/10/2023. Benign calcifications in each breast. No new or suspicious mass or grouping of calcification. MM/MM diag BI tomosynthesis [id number] IMPRESSION: BI-RADS: 2 - Benign FOLLOW UP: 1 Year Follow-up
== END 2025-09-22 09:09 | disposition home or self-care (01) ==
LOC: RAD 09:10
PROVIDERS: PCP Family Medicine; Visit Provider Family Medicine
DX: Z12.31 Encounter for screening mammogram for malignant neoplasm of breast (principal); R92.333 Mammographic heterogeneous density, bilateral breasts; R92.1 Mammographic calcification found on diagnostic imaging of breast; Z48.89 Encounter for other specified surgical aftercare; N63.21 Unspecified lump in the left breast, upper outer quadrant; L90.5 Scar conditions and fibrosis of skin
CPT/HCPCS: 77062; G0279

== ENCOUNTER 2025-09-23 08:12 | Outpatient (CLI) | payer MEDICARE, OTHER, SELFPAY ==
--- NOTE | 2025-09-23 08:30 | USCV_ITS ---
Lucinda Huynh Age: 70 Gender: F : 1955 Exam Date: 09/23/2025 08:36 Ordering Phys: Jin Zarate MD ([email or web address]) Technologist: [place] [facility] [place]: ANDERS, BP: 128 / 70 HR: 54 Rhythm: Sinus Technical Quality: Adequate MEASUREMENTS (Male / Female) Normal Values 2D ECHO LV Diastolic Diameter PLAX 5.9 cm 4.2 - 5.9 / 3.9 - 5.3 cm IVS Diastolic Thickness 0.9 cm 0.6 - 1.0 / 0.6 - 0.9 cm IVS Systolic Thickness 0.9 cm LVPW Diastolic Thickness 0.7 cm 0.6 - 1.0 / 0.6 - 0.9 cm LVPW Systolic Thickness 0.8 cm LVOT Diameter 2.0 cm LV Ejection Fraction 2D Teich 24.4 % LV Ejection Fraction MOD 4C 59.2 % LV Ejection Fraction MOD 2C 61.8 % LV Ejection Fraction 2C AL 64.7 % LA Diameter 4.1 cm RA Systolic Volume 4C AL 53.0 ml RA Systolic Volume 4C MOD 47.1 ml LA Sys Volume AL 75.4 cm cubed LA Sys Volume Index AL 37.8 cm cubed/m squared Aorta at Sinotubular Diameter 2.5 cm IVC Diameter 1.8 cm M-MODE LA Ao Ratio MM 1.5 AV Cusp Separation MM 1.3 cm DOPPLER AV Peak Velocity 266.3 cm/s LVOT Peak Velocity 140.0 cm/s AV Area Cont Eq vti 1.9 cm squared AV Area Cont Eq pk 1.6 cm squared MV Peak Velocity 136.0 cm/s MV Area PHT 4.7 cm squared Mitral E to A Ratio 1.3 TR Peak Velocity 98.0 cm/s TR Peak Gradient 3.8 mmHg TV Peak E Velocity 82.0 cm/s PV Peak Velocity 101.0 cm/s FINDINGS Left Ventricle Normal left ventricular size and systolic function, EF 61%.no regional wall motion abnormalities. Mild left ventricular hypertrophy. Right Ventricle Normal right ventricular size and systolic function. Right Atrium Mildly increased right atrial size. Left Atrium Mildly increased left atrial size. IA Septum Normal interatrial septum. Mitral Valve Thickened mitral valve. Mild mitral annular calcification. Aortic Valve Mild aortic valve stenosis, mean gradient 15.5 mmHg, KATIE 1.9 cm squared. Trace to mild aortic valve regurgitation. Tricuspid Valve No gross abnormalities noted Pulmonic Valve No gross abnormalities noted Pericardium No pericardial effusion. Aorta Normal aortic annulus size. IVC Normal inferior vena cava. CONCLUSIONS Normal left ventricular size and systolic function, EF 61%.no regional wall motion abnormalities. Mild left ventricular hypertrophy. Mild biatrial enlargement. Thickened mitral valve. Mild mitral annular calcification. Mild aortic valve stenosis, mean gradient 15.5 mmHg, KATIE 1.9 cm squared. Trace to mild aortic valve regurgitation. There is no pericardial effusion. There are no intracardiac masses. Compared to the study from 05/10/2025, there may not be a significant change Dr Jin Zarate MD [facility] (Electronically Signed) Final Date: 24 September 2025 16:46 S
== END 2025-09-23 08:13 | disposition home or self-care (01) ==
LOC: RAD 08:14
PROVIDERS: PCP Family Medicine; Visit Provider Internal Medicine Cardiovascular Disease
DX: R06.09 Other forms of dyspnea (principal); I51.7 Cardiomegaly; I34.9 Nonrheumatic mitral valve disorder, unspecified; I35.0 Nonrheumatic aortic (valve) stenosis; I35.1 Nonrheumatic aortic (valve) insufficiency
CPT/HCPCS: 93306

== ENCOUNTER → 2025-10-06 10:56 | Outpatient (BNVA) | payer MEDICARE, OTHER, SELFPAY | PROVIDERS: PCP Family Medicine; Visit Provider Student in an Organized Health Care Education/Training Program | DX: M25.551 Pain in right hip (principal); M16.11 Unilateral primary osteoarthritis, right hip | CPT/HCPCS: 73502; 99203 ==

== ENCOUNTER → 2025-10-13 10:16 | Outpatient (BNVA) | payer MEDICARE, OTHER, SELFPAY | PROVIDERS: PCP Family Medicine; Visit Provider Student in an Organized Health Care Education/Training Program | DX: M25.561 Pain in right knee (principal); Z01.89 Encounter for other specified special examinations; M17.11 Unilateral primary osteoarthritis, right knee | CPT/HCPCS: 20610; 73560; 73565; 99213; J3301; J9999 ==

== ENCOUNTER → 2025-10-15 11:55 | Outpatient (BNVA) | payer MEDICARE, OTHER, SELFPAY | PROVIDERS: PCP Family Medicine; Visit Provider Student in an Organized Health Care Education/Training Program | DX: M16.11 Unilateral primary osteoarthritis, right hip (principal); Z71.89 Other specified counseling | CPT/HCPCS: 20610; 77002; J3301; J9999 ==

== ENCOUNTER → 2025-11-03 10:05 | Outpatient (BNVA) | payer MEDICARE, OTHER, SELFPAY | PROVIDERS: PCP Family Medicine; Visit Provider Physician Assistant | DX: M17.12 Unilateral primary osteoarthritis, left knee (principal) | CPT/HCPCS: 20610; 73560; 73565; 99213; J3301; J9999 ==